=== PATIENT | male | born 1930 | race Caucasian/White ===

== ENCOUNTER 2017-09-23 11:18 | Emergency (ER) | payer BC, OTHER ==
[~2017-09-23] VITALS: Ht 165.1 cm; Wt 60.1 kg
[~2017-09-23 11:18] MED LIST: ASPEC81; FLNIN; MULT-506; PENLAC; VITA100C4; [UNRECOGNIZED DRUG - OTHER]
[2017-09-23 11:20] VITALS: TEMP 36.9; Ht 165.1 cm; Wt 60.1 kg
[2017-09-23] MEDS ORDERED: OXYMETAZOLINE HCL 0.05% NA SPR 15 ML BTL ONE (11:30)
[2017-09-23 12:08] LABS: BASO % 0.7 %; BASO ABS # 0.03 K/uL (0-0.2); COMPLETE YES; EOS % 5.2 %; HEMATOCRIT 33.4 % (42-52); IG% 0.2 %; LYMPH ABS # 0.98 K/uL (1.2-3.4); MEAN CELL VOLUME 98.2 fL (80-100); MEAN CORPUSCULAR HGB CONC 35.6 g/dl (32-36); MEAN PLATELET VOLUME 9.6 fL (7.4-10.4); NEUT % 62.9 %; PLATELET COUNT 129 K/uL (130-400); WHITE BLOOD COUNT 4.45 K/uL (4.8-10.8)
--- NOTE | 2017-09-23 12:19 | DIAGNOSTIC IMAGING REPORT ---
CT SCAN OF THE BRAIN WITHOUT IV CONTRAST CLINICAL HISTORY: Fall. COMPARISON STUDY: CT of the brain dated 08/28/2006. TECHNIQUE: Unenhanced axial CT scan of the brain is performed from the vertex to the skull base. CT DOSE: 1119.75 mGy.cm FINDINGS: Brain parenchyma: There are age-related involutional changes noting moderate patchy subcortical and periventricular microangiopathic change. There is no hemorrhage, mass effect, or evidence of acute territorial ischemia by CT criteria. Ochoa-white matter is preserved. No extra-axial fluid collection is seen. Ventricles, sulci, cisterns: Prominent secondary to involutional change. Intracranial vasculature: There is atherosclerotic calcification of the cavernous carotid arteries. Calvarium: The skeletal structures are osteopenic. Postoperative change is noted in the left occipital calvarium. No depressed calvarial fracture is seen. Nasal bone fractures are suspected. Sinuses and mastoids: Air-fluid level is seen in the left maxillary antrum. The remaining visualized paranasal sinuses are clear. The mastoid air cells are well pneumatized. Orbits: The bony orbits are grossly intact. IMPRESSION: 1. There is no hemorrhage, mass effect, or evidence of acute territorial ischemia by CT criteria. 2. No depressed calvarial fracture is seen. 3. Bilateral nasal bone fractures. 4. An air-fluid level is seen in the right maxillary antrum. Electronically signed by: Zeyad Suh M.D. 09/23/2017 12:18 PM Dictated Date/Time: 09/23/2017 12:11 PM
--- NOTE | 2017-09-23 12:24 | DIAGNOSTIC IMAGING REPORT ---
MAXILLOFACIAL CT CT DOSE: HISTORY: Facial pain. fall TECHNIQUE: Multiaxial CT images of the maxillofacial region were performed and reformatted in the coronal plane without the use of contrast. A dose lowering technique was utilized adhering to the principles of ALARA. COMPARISON: None. FINDINGS: Comminuted and mildly displaced nasal bone fractures. Mild leftward deviation of the nasal septum. The lamina papyracea, orbital floors, pterygoid plates, zygomatic arches, and mandible appear intact. No fractures within the skull base are visualized cervical spine. Small amount of hemorrhage within the left maxillary sinus. The orbits and visualized brain parenchyma are unremarkable. Nasal soft tissue swelling. IMPRESSION: Comminuted and mildly displaced nasal bone fractures. Small amount of hemorrhage within the left maxillary sinus. Electronically signed by: Lyle Chapman M.D. 09/23/2017 12:22 PM Dictated Date/Time: 09/23/2017 12:16 PM
[2017-09-23] MEDS ORDERED: CYCL0.052 OP (12:25)
[2017-09-23] MEDS ORDERED: IPRA0.03 NAE (12:25)
[2017-09-23] MEDS ORDERED: FLUT1SPR12 (12:25)
--- NOTE | 2017-09-23 12:28 | DIAGNOSTIC IMAGING REPORT ---
CERVICAL SPINE W/O CLINICAL HISTORY: 87 years-old Male with fall. Acute neck pain status post fall with nasal bleeding COMPARISON: CT head and maxillofacial study of same day. TECHNIQUE: Multiple axial CT images of the cervical spine were obtained without contrast. A dose lowering technique was utilized adhering to the principles of ALARA. FINDINGS: Moderate bone demineralization. There is anterolisthesis of 3 mm involving C5 on C6 and C7 on T1. This is likely secondary to long-standing advanced facet arthropathy. Severe facet arthrosis is noted at several levels throughout the cervical spine. Advanced intervertebral disc space narrowing at C6-C7. Multilevel posterior disc osteophyte complex formations. Mild biapical pleural-parenchymal scarring with subpleural calcifications. Bilateral nasal bone fractures are noted. Layering hemorrhage within the left maxillary sinus. IMPRESSION: 1. No acute cervical spine fracture or subluxation. 2. Moderate bone demineralization with multilevel advanced facet arthropathy and spondylitic changes. 3. Bilateral nasal bone fractures. Please see CT maxillofacial study of same day for further details. The above report was generated using voice recognition software. It may contain grammatical, syntax or spelling errors. Electronically signed by: Kevin Denise M.D. 09/23/2017 12:26 PM Dictated Date/Time: 09/23/2017 12:13 PM
[2017-09-23 12:29] LABS: ALT/SGPT 22 U/L (12-78); AST/SGOT 16 U/L (15-37); BLOOD UREA NITROGEN 31 mg/dl (7-18); BUN/CREATININE RATIO 28.1 (10-20); CALCIUM 8.9 mg/dl (8.5-10.1); CARBON DIOXIDE 26 mmol/L (21-32); CHLORIDE 100 mmol/L (98-107); CREATININE 1.12 mg/dl (0.60-1.40); GLUCOSE 96 mg/dl (70-99); POTASSIUM 4.4 mmol/L (3.5-5.1); SODIUM 135 mmol/L (136-145)
[2017-09-23 12:32] LABS: ALKALINE PHOSPHATASE 70 U/L (45-117); PROTHROMBIN TIME (PATIENT) 10.7 SECONDS (9.0-12.0)
[2017-09-23] MEDS ORDERED: CEPH500C2 PO (13:32)
--- NOTE | 2017-09-23 14:09 | EMERGENCY ROOM VISIT NOTE ---
History Report prepared by Yennyibnimo: Phillip Gutierrez Under the Supervision of: Dr. Nicko Mancera D.O. First contact with patient: 11:29 Chief Complaint: FALL Stated Complaint: FALL/NOSE BLEED History of Present Illness The patient is a 87 year old male who presents to the Emergency Room with complaints of constant facial pain s/p fall occurring two hours ago. He states that he tripped and landed on his face. He states that he has had a persistent nosebleed that he has not been able to stop. The patient denies abdominal pain, chest pain, or SOB. He did not lose consciousness during the fall. He is on full strength aspirin, but denies use of other blood thinners. The patient's tetanus is up to date. Source of History: patient Onset: Two hours ago Position: head (face) Timing: constant Associated Symptoms: No LOC, No chest pain, No SOB, No abdominal pain Review of Systems See HPI for pertinent positives & negatives. A total of 10 systems reviewed and were otherwise negative. Past Medical & Surgical Medical Problems: (1) Iritis Family History No pertinent family history stated. Social History Smoking Status: Never Smoker Occupation Status: retired Current/Historical Medications Scheduled Cephalexin Monohydrate (Keflex), 500 MG PO QID Cyclosporine (Ophth) (Restasis), 1 DROP OP BID Fluticasone Propionate (Nasal) (Flonase Allergy Relief Ch), 1 SPRAY NA DAILY Ipratropium [place] (Nasal) (Ipratropium [place]), 1 SPRAY FIDE DAILY Allergies Coded Allergies: Dust Mite Extract (Verified Allergy, Mild, 09/23/17) Molds and Smuts (Verified Allergy, Mild, 09/23/17) POLLEN (Verified Allergy, Mild, 09/23/17) Uncoded Allergies: ALLERGYEXTR (Allergy, Mild, 01/02/10) Physical Exam Vital Signs Date Time Temp Pulse Resp B/P (MAP) Pulse Ox O2 Delivery O2 Flow Rate FiO2 09/23/17 14:20 88 16 137/72 98 09/23/17 13:13 62 16 141/70 99 Room Air 09/23/17 11:20 36.9 73 18 131/81 96 Room Air Physical Exam GENERAL: Patient is awake, alert, and in no acute distress. Patient appears somewhat anxious. HEAD: Significant swelling over the bridge of the nose. Appears to be deviation of the septum with diminished nares size on the right. Significant amount of clotted blood in the left nare. Posterior oropharynx clear. EYES: The conjunctivae are clear. The pupils are round and reactive. EARS, NOSE, MOUTH AND THROAT: The nose is without any evidence of any deformity. Mucous membranes are moist tongue is midline NECK: The neck is nontender and supple. RESPIRATORY: Normal respiratory effort is noted there is no evidence of wheezing rhonchi or rales CARDIOVASCULAR: Regular rate and rhythm noted there no murmurs rubs or gallops normal S1 normal S2 GASTROINTESTINAL: The abdomen is soft. Bowel sounds are present in all quadrants. Abdomen is nontender BACK: No midline tenderness or or step-off noted range of motion in flexion extension as well as rotation no signs of muscle spasm noted MUSCULOSKELETAL/EXTREMITIES: There is no evidence of gross deformity full range of motion is noted in the hips and shoulders SKIN: There is no obvious evidence of any rash. There are no petechiae, pallor or cyanosis noted. NEUROLOGIC: Patient is awake alert and oriented x3 strength is symmetric patellar reflexes are 2+ bilaterally. Medical Decision & Procedures ER Provider Diagnostic Interpretation: CT results as stated below per my review and radiologist interpretation. MAXILLOFACIAL CT FINDINGS: Comminuted and mildly displaced nasal bone fractures. Mild leftward deviation of the nasal septum. The lamina papyracea, orbital floors, pterygoid plates, zygomatic arches, and mandible appear intact. No fractures within the skull base are visualized cervical spine. Small amount of hemorrhage within the left maxillary sinus. The orbits and visualized brain parenchyma are unremarkable. Nasal soft tissue swelling. IMPRESSION: Comminuted and mildly displaced nasal bone fractures. Small amount of hemorrhage within the left maxillary sinus. Electronically signed by: Lyle Champan M.D. 09/23/2017 12:[address] SCAN OF THE BRAIN WITHOUT IV CONTRAST FINDINGS: Brain parenchyma: There are age-related involutional changes noting moderate patchy subcortical and periventricular microangiopathic change. There is no hemorrhage, mass effect, or evidence of acute territorial ischemia by CT criteria. Ochoa-white matter is preserved. No extra-axial fluid collection is seen. Ventricles, sulci, cisterns: Prominent secondary to involutional change. Intracranial vasculature: There is atherosclerotic calcification of the cavernous carotid arteries. Calvarium: The skeletal structures are osteopenic. Postoperative change is noted in the left occipital calvarium. No depressed calvarial fracture is seen. Nasal bone fractures are suspected. Sinuses and mastoids: Air-fluid level is seen in the left maxillary antrum. The remaining visualized paranasal sinuses are clear. The mastoid air cells are well pneumatized. Orbits: The bony orbits are grossly intact. IMPRESSION: 1. There is no hemorrhage, mass effect, or evidence of acute territorial ischemia by CT criteria. 2. No depressed calvarial fracture is seen. 3. Bilateral nasal bone fractures. 4. An air-fluid level is seen in the right maxillary antrum. Electronically signed by: Zeyad Suh M.D. 09/23/2017 12:18 PM CERVICAL SPINE W/O FINDINGS: Moderate bone demineralization. There is anterolisthesis of 3 mm involving C5 on C6 and C7 on T1. This is likely secondary to long-standing advanced facet arthropathy. Severe facet arthrosis is noted at several levels throughout the cervical spine. Advanced intervertebral disc space narrowing at C6-C7. Multilevel posterior disc osteophyte complex formations. Mild biapical pleural-parenchymal scarring with subpleural calcifications. Bilateral nasal bone fractures are noted. Layering hemorrhage within the left maxillary sinus. IMPRESSION: 1. No acute cervical spine fracture or subluxation. 2. Moderate bone demineralization with multilevel advanced facet arthropathy and spondylitic changes. 3. Bilateral nasal bone fractures. Please see CT maxillofacial study of same day for further details. The above report was generated using voice recognition software. It may contain grammatical, syntax or spelling errors. Electronically signed by: Kevin Denise M.D. 09/23/2017 12:26 PM Laboratory Results 09/23/17 11:44 Red Blood Count 3.40, Mean Corpuscular Volume 98.2, Mean Corpuscular Hemoglobin 35.0, Mean Corpuscular Hemoglobin Concent 35.6, Mean Platelet Volume 9.6, Neutrophils (%) (Auto) 62.9, Lymphocytes (%) (Auto) 22.0, Monocytes (%) (Auto) 9.0, Eosinophils (%) (Auto) 5.2, Basophils (%) (Auto) 0.7, Neutrophils # (Auto) 2.80, Lymphocytes # (Auto) 0.98, Monocytes # (Auto) 0.40, Eosinophils # (Auto) 0.23, Basophils # (Auto) 0.03 09/23/17 11:44 Test 09/23/17 11:44 White Blood Count 4.45 K/uL (4.8-10.8) Red Blood Count 3.40 M/uL (4.7-6.1) Hemoglobin 11.9 g/dL (14.0-18.0) Hematocrit 33.4 % (42-52) Mean Corpuscular Volume 98.2 fL (80-100) Mean Corpuscular Hemoglobin 35.0 pg (25-34) Mean Corpuscular Hemoglobin Concent 35.6 g/dl (32-36) Platelet Count 129 K/uL (130-400) Mean Platelet Volume 9.6 fL (7.4-10.4) Neutrophils (%) (Auto) 62.9 % Lymphocytes (%) (Auto) 22.0 % Monocytes (%) (Auto) 9.0 % Eosinophils (%) (Auto) 5.2 % Basophils (%) (Auto) 0.7 % Neutrophils # (Auto) 2.80 K/uL (1.4-6.5) Lymphocytes # (Auto) 0.98 K/uL (1.2-3.4) Monocytes # (Auto) 0.40 K/uL (0.11-0.59) Eosinophils # (Auto) 0.23 K/uL (0-0.5) Basophils # (Auto) 0.03 K/uL (0-0.2) RDW Standard Deviation 45.1 fL (36.4-46.3) RDW Coefficient of Variation 12.7 % (11.5-14.5) Immature Granulocyte % (Auto) 0.2 % Immature Granulocyte # (Auto) 0.01 K/uL (0.00-0.02) Prothrombin Time 10.7 SECONDS (9.0-12.0) Prothromb Time International Ratio 1.0 (0.9-1.1) Activated Partial Thromboplast Time 25.9 SECONDS (21.0-31.0) Partial Thromboplastin Ratio 1.0 Anion Gap 9.0 mmol/L (3-11) Est Creatinine Clear Calc Drug Dose 41.0 ml/min Estimated GFR () 69.1 Estimated GFR (Non- 59.6 BUN/Creatinine Ratio 28.1 (10-20) Calcium Level 8.9 mg/dl (8.5-10.1) Total Bilirubin 0.3 mg/dl (0.2-1) Direct Bilirubin < 0.1 mg/dl (0-0.2) Aspartate Amino Transf (AST/SGOT) 16 U/L (15-37) Alanine Aminotransferase (ALT/SGPT) 22 U/L (12-78) Alkaline Phosphatase 70 U/L (45-117) Total Protein 6.4 gm/dl (6.4-8.2) Albumin 3.6 gm/dl (3.4-5.0) Laboratory results per my review. Medications Administered Medications (Trade) Dose Ordered Sig/Charisse Route Start Time Stop Time Status Last Admin Dose Admin Oxymetazoline HCl (Afrin 0.05% Nasal Malcolm) 75 sprays STK-MED ONCE .ROUTE 09/23/17 11:30 09/23/17 11:31 DC 09/23/17 11:40 75 SPRAYS ED Course 1130: The patient was evaluated in room C9. A complete history and physical examination were performed. Ordered Afrin 0.05% Nasal Malcolm 75 sprays INH. 1330: The oil field caser set up an appointment for the patient to see Dr. Kyle next week. 1400: Upon reevaluation, the patient is resting comfortably. I discussed the results and treatment plan with him. He verbalized agreement of the treatment plan. The patient was discharged home. Medical Decision Differential diagnosis: Etiologies such as fracture, dislocation, intra-abdominal, pneumothorax, intrathoracic , intracranial, neurologic, as well as other traumatic pathologies were entertained. Nursing notes reviewed. The patient is an 87-year-old male who presented to the emergency department after a fall. The patient fell forward striking his face. He sustained a significant facial injury with nasal bone fractures and epistaxis. The epistaxis was controlled with Afrin and pressure. I discussed the patient's laboratory and radiographic studies with him. He was found have bilateral nasal bone fractures with significant deformity. I discussed his case with the emergency Department oil field caser's. I asked them to set the patient up with an appointment with the [facility] in his throat physician at the patient's request. The patient was seen by the [facility] ear nose and throat physician in the past for different problem and has [employer] insurance. I was informed by the ear nose and throat physician for [facility] that the patient would have to see the on-call ear nose throat physician. The emergency Department oil field caser was able to get the patient an appointment next week with ear nose and throat physician. I feel this is acceptable. The patient was encouraged to continue taking the antibiotic that was prescribed and return to the emergency department immediately if symptoms change worsen or the need arises otherwise he was encouraged to follow-up with ear nose and throat physician as scheduled. Medication Reconcilliation Current Medication List: was personally reviewed by me Blood Pressure Screening Patient's blood pressure: Normal blood pressure Blood pressure disposition: Did not require urgent referral Consults Time Called: 1305 Consulting Physician: Dr. Cota -ENT Returned Call: 1310 I discussed the patient's case with Dr. Cota. He will not see the patient as this time. 1310: I spoke with Dr. Cota again. He states that due to an agreement with the other four ENT services, the alternate ENT service should be consulted. Impression Primary Impression: Fall Additional Impressions: Head injury Facial contusion Nasal bone fractures Epistaxis Scribe Attestation The scribe's documentation has been prepared under my direction and personally reviewed by me in its entirety. I confirm that the note above accurately reflects all work, treatment, procedures, and medical decision making performed by me. Departure Information Dispostion Home / Self-Care Prescriptions Cephalexin Monohydrate (KEFLEX) 500 Mg Cap 500 MG PO QID, #28 CAP Prov: Nicko Mancera, DO 09/23/17 Referrals Julia Lizama M.D. (PCP) Forms HOME CARE DOCUMENTATION FORM, IMPORTANT VISIT INFORMATION [facility] Inst[facility] Additional Instructions Follow-up with ear nose and throat physician as scheduled. Return to the emergency department immediately if symptoms change worsen or the need arises. Continue all medications as prescribed. Problem Qualifiers Primary Impression: Fall Encounter type: initial encounter Qualified Codes: W19.XXXA - Unspecified fall, initial encounter Additional Impressions: Head injury Encounter type: initial encounter Qualified Codes: S09.90XA - Unspecified injury of head, initial encounter Facial contusion Encounter type: initial encounter Qualified Codes: S00.83XA - Contusion of other part of head, initial encounter Nasal bone fractures Encounter type: initial encounter Fracture type: closed Qualified Codes: S02.2XXA - Fracture of nasal bones, initial encounter for closed fracture
[2017-09-23 14:20] VITALS: BP 137/72; PULSE 88; O2SAT 98
== END 2017-09-23 14:20 | disposition home or self-care (01) ==
LOC: C.EDB 11:20 → C.EDC 14:20
DX: S09.90XA Unspecified injury of head, initial encounter (principal); S00.83XA Contusion of other part of head, initial encounter; S02.2XXA Fracture of nasal bones, initial encounter for closed fracture; W01.0XXA Fall on same level from slipping, tripping and stumbling without subsequent striking against object, initial encounter; R04.0 Epistaxis; Z79.899 Other long term (current) drug therapy; Z91.09 Other allergy status, other than to drugs and biological substances

== ENCOUNTER 2019-01-10 14:47 | Inpatient (IN) ==
[2019-01-10] MEDS ORDERED: SODIUM CHLORIDE 0.9% 1000ML 500 ML IV ONE (15:00)
[2019-01-10 15:18] LABS: iSTAT Creatinine 1.1 mg/dl (0.6-1.3); iSTAT Hemoglobin 10.9 g/dl (14.0-18.0); iSTAT Ionized Calcium 1.17 mmol/l (1.12-1.32); iSTAT Potassium 3.6 mEq/L (3.3-5.0)
[2019-01-10 15:23] LABS: Hematocrit (blood only) 31.7 % (42-52); Hemoglobin 11.4 g/dL (14.0-18.0); Mean Corpuscular Volume 96.4 fL (80-100); Mean Platelet Volume 9.9 fL (7.4-10.4); Platelet Count 108 K/uL (130-400); RDW Standard Deviation 42.3 fL (36.4-46.3); Red Blood Count 3.29 M/uL (4.7-6.1); White Blood Count 10.32 K/uL (4.8-10.8)
[2019-01-10 15:24] LABS: INR 1.1 (0.9-1.1); Partial Thromboplastin Ratio 1.1; Partial Thromboplastin Time 27.3 Seconds (21.0-31.0); Prothrombin Time 11.2 Seconds (9.0-12.0)
--- NOTE | 2019-01-10 15:29 | XRay Report ---
XR pelvis 1-2V routine CLINICAL HISTORY: fall trauma. Pain. COMPARISON: None. DISCUSSION: The bones and joint spaces appear intact. There is no evidence of fracture, dislocation o r bony disease. There is no evidence for soft tissue swelling. Moderate degenerative changes of the h ips. IMPRESSION: No acute process. The above report was generated using voice recognition software. It may contain grammatical, syntax or spelling errors. Electronically signed by: Jun Kaplan M.D. 01/10/2019 3:28 PM
--- NOTE | 2019-01-10 15:30 | XRay Report ---
XR chest 1V portable CLINICAL HISTORY: fall trauma COMPARISON STUDY: 09/13/2018 FINDINGS: Small parenchymal infiltrate versus atelectasis right base. Lungs otherwise appear clear. N o evidence for pneumothorax. Chronic right apical pleural thickening unchanged from the prior study. IMPRESSION: Mild atelectasis right base. Mild emphysematous change. The above report was generated using voice recognition software. It may contain grammatical, syntax or spelling errors. Electronically signed by: Jun Kaplan M.D. 01/10/2019 3:29 PM
[2019-01-10 15:33] LABS: BUN Creatinine Ratio 22.4 (10-20); Calcium 8.6 mg/dl (8.5-10.1); Creatinine Clr Calc Pharmacy 37.5 ml/min; Est GFR (African American) 63.1; Est GFR (Non-African American) 54.4; Potassium 3.5 mmol/L (3.5-5.1)
[2019-01-10 15:46] LABS: Basophils # (auto) 0.01 K/uL (0-0.2); Basophils % (auto) 0.1 %; Immature Granulocytes # (auto) 0.02 K/uL (0.00-0.02); Immature Granulocytes % (auto) 0.2 %; Lymphocytes # (auto) 0.42 K/uL (1.2-3.4); Lymphocytes % (auto) 4.1 %; Monocytes # (auto) 0.41 K/uL (0.11-0.59); Neutrophils # (auto) 9.46 K/uL (1.4-6.5); Neutrophils % (auto) 91.6 %
[2019-01-10 15:47] LABS: Troponin I 0.1 ng/ml (0-0.045)
--- NOTE | 2019-01-10 16:24 | CT Scan Report ---
CT head/brain wo con CT DOSE: 729.78 mGycm HISTORY: Trauma fall on blood thinners TECHNIQUE: Multiaxial CT images of the head were performed without the use of intravenous contrast. A dose lowering technique was utilized adhering to the principles of ALARA. Comparison: 09/14/2018 Findings: Moderate mucosal thickening of all major sinuses. The calvarium and skull base are intact. The ventricles and sulci are within normal limits. There is no mass, hematoma, midline shift, or acut e infarct. Impression: No acute intracranial abnormality. Age-related atrophy and chronic small vessel change. The above report was generated using voice recognition software. It may contain grammatical, syntax or spelling errors. Electronically signed by: Jun Kaplan M.D. 01/10/2019 4:22 PM
--- NOTE | 2019-01-10 16:26 | CT Scan Report ---
CT OF THE CERVICAL SPINE WITHOUT CONTRAST CLINICAL HISTORY: fall COMPARISON STUDY: Cervical spine CT September 23, 2017. TECHNIQUE: Helical axial images of the cervical spine were obtained without IV contrast. Sagittal a nd coronal reconstructions were viewed. Automated exposure control was utilized for the study. A do se lowering technique was utilized adhering to the principles of ALARA. FINDINGS: No cervical spine fracture is identified. Craniocervical junction is intact. 3 mm of juan manuel listhesis of C5 on C6 is unchanged since exam September 23, 2017. There is moderate multilevel degenera tive disc disease and severe multilevel facet arthrosis. There is no prevertebral edema. Left mastoid air cells are partially opacified. IMPRESSION: 1. No acute cervical spine fracture or subluxation. 2. Partially opacified left mastoid air cells. Electronically signed by: Marcus Cho M.D. 01/10/2019 4:25 PM
--- NOTE | 2019-01-10 18:47 | History & Physical Report ---
Date of Service January 10, 2019 Assessment & Plan (1) Fall: Mostly due to recent Nasal congestion and left ear pressure Has been having unsteady gait CT head showed no acute intracranial abnormality Check CPK level Will do PT/OT Fall precaution (2) Elevated troponin: Might be related to rhabdo due to Fall Denies any chest pain EKG showed no ischemic changes Will trend troponin Continue Plavix, aspirin and statin (3) Nasal congestion: (4) Allergic rhinitis: Symptoms have been going on for 5 days Continue loratadine, flonase and nasal saline (5) Hypertension: BP stable (6) CVA (cerebral vascular accident): Continue palvix/aspirin and statin stable Left Shoulder Pain Mostly due to fall Will get xray of L shoulder (7) DVT prophylaxis: Lovenox subq CODE STATUS [facility] no [facility] History of Present Illness Chief Complaint: Fall Primary Care Provider: Eladio Bright MD 87 year old male with PMH CVA, Allergic rhinitis, asthma, thyroid nodule, chronic constipation who present to the ER after a fall today. Pt said that for the last 5 days, he has been having nasal congestion, and pressure in his left ear. He said that his gait has been unsteady due to his balance since having nasal congestion and left ear pressure. Pt said that this morning while going to the bathroom, he said that he lost his balance and fell. He said that he was unable to get up. He said that it happened so fast and could not recall how and what caused him to fall. He said that he was on the floor for about 1 hr. He said that he must have pushed his life alert because the EMS came to his place to help him. He said that he did not hit his head during the fall. He said that he did not lose consciousness. He said that his left shoulder his tender. He said that he lives alone and very active. Denies any chest pain, palpitation, dizziness and fever. Allergies Allergy/AdvReac Type Severity Reaction Status Date / Time mold Allergy Mild Verified 01/10/19 17:24 pollen extracts Allergy Mild Verified 01/10/19 17:24 ALLERGYEXTR Allergy Mild unk Uncoded 01/10/19 17:24 Dust Mite Extract Allergy Mild unk Uncoded 01/10/19 17:24 Home Medications Home Medications Medication Instructions Recorded Confirmed Type atorvastatin 40 mg PO QPM 09/13/18 01/10/19 History cholecalciferol (vitamin D3) 2,000 unit PO DAILY 09/13/18 01/10/19 History clopidogrel 75 mg PO DAILY 09/13/18 01/10/19 History cyclosporine 1 drp OPHTHALMIC (EYE) Q12H 09/13/18 01/10/19 History docusate sodium 100 mg PO DAILY 09/13/18 01/10/19 History fluticasone 2 spray INTRANASAL DAILY 09/13/18 01/10/19 History glucosamine sulfate [Glucosamine] 1 tab PO TID 09/13/18 01/10/19 History ipratropium bromide 2 spray INTRANASAL BID 09/13/18 01/10/19 History loratadine 10 mg PO DAILY 09/13/18 01/10/19 History multivitamin [Multiple Vitamins] 1 tab PO QAM 09/13/18 01/10/19 History polyethylene glycol 3350 [Miralax] 17 g PO DAILY PRN 09/13/18 01/10/19 History acetaminophen [Tylenol Extra 1 tab PO DAILY PRN 01/10/19 01/10/19 History Strength] finasteride 1 tab PO DAILY 01/10/19 01/10/19 History mupirocin calcium 1 applic TOPICAL BID 01/10/19 01/10/19 History tamsulosin 1 cap PO DAILY 01/10/19 01/10/19 History Past Med/Surg History Medical History Depression Thyroid nodule (Chronic) Chronic constipation (Chronic) Allergic rhinitis (Chronic) Asthma (Chronic) CVA (cerebral vascular accident) Short-term memory loss (Chronic) Iritis (Resolved) Surgical History History of inguinal hernia repair (Chronic) Social History marital status: / marital status details: is in Alzheimer care unit Current Living Situation: Alone current occupational status: retired Other Information That Helps Us Care for You: No Feels Safe at Home: Yes Safety Concerns: Feels Safe At This Time Smoking Status: Never smoker Second Hand Exposure: No Hx Alcohol Use: No Hx Substance Use: No Communication Ability: Effective 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 swelling on turbinates Neck- supple, no JVD Lungs- cNo wheezing Heart- regular rhythm; no murmur Abdomen- normal bowel sounds, soft, nontender Extremities- no calf tenderness, Left shoulder pain Neuro- alert, oriented x 3; PERRL, EOMI; no facial palsy; no dysarthria Skin- warm & dry Results & Data Diagnostic Findings CT OF THE CERVICAL SPINE WITHOUT CONTRAST CLINICAL HISTORY: fall COMPARISON STUDY: Cervical spine CT September 23, 2017. TECHNIQUE: Helical axial images of the cervical spine were obtained without IV contrast. Sagittal and coronal reconstructions were viewed. Automated exposure control was utilized for the study. A dose lowering technique was utilized adhering to the principles of ALARA. FINDINGS: No cervical spine fracture is identified. Craniocervical junction is intact. 3 mm of anterolisthesis of C5 on C6 is unchanged since exam September 23, 2017. There is moderate multilevel degenerative disc disease and severe multilevel facet arthrosis. There is no prevertebral edema. Left mastoid air cells are partially opacified. IMPRESSION: 1. No acute cervical spine fracture or subluxation. 2. Partially opacified left mastoid air cells. Electronically signed by: Marcus Cho M.D. 01/10/2019 4:25 PM Dictated: 01/10/19 1620 Transcribed: 01/10/19 1620 XR pelvis 1-2V routine CLINICAL HISTORY: fall trauma. Pain. COMPARISON: None. DISCUSSION: The bones and joint spaces appear intact. There is no evidence of fracture, dislocation or bony disease. There is no evidence for soft tissue swelling. Moderate degenerative changes of the hips. IMPRESSION: No acute process. The above report was generated using voice recognition software. It may contain grammatical, syntax or spelling errors. Electronically signed by: Jun Kaplan M.D. 01/10/2019 3:28 PM Dictated: 01/10/19 1526 Transcribed: 01/10/[address] head/brain wo con CT DOSE: 729.78 mGycm HISTORY: Trauma fall on blood thinners TECHNIQUE: Multiaxial CT images of the head were performed without the use of intravenous contrast. A dose lowering technique was utilized adhering to the principles of ALARA. Comparison: 09/14/2018 Findings: Moderate mucosal thickening of all major sinuses. The calvarium and skull base are intact. The ventricles and sulci are within normal limits. There is no mass, hematoma, midline shift, or acute infarct. Impression: No acute intracranial abnormality. Age-related atrophy and chronic small vessel change. The above report was generated using voice recognition software. It may contain grammatical, syntax or spelling errors. Electronically signed by: Jun Kaplan M.D. 01/10/2019 4:22 PM Dictated: 01/10/19 1620 Transcribed: 01/10/19 162 XR chest 1V portable CLINICAL HISTORY: fall trauma COMPARISON STUDY: 09/13/2018 FINDINGS: Small parenchymal infiltrate versus atelectasis right base. Lungs otherwise appear clear. No evidence for pneumothorax. Chronic right apical pleural thickening unchanged from the prior study. IMPRESSION: Mild atelectasis right base. Mild emphysematous change. The above report was generated using voice recognition software. It may contain grammatical, syntax or spelling errors. Electronically signed by: Jun Kaplan M.D. 01/10/2019 3:29 PM Dictated: 01/10/19 1528 Transcribed: 01/10/19 1528 _ (1) Hypertension Hypertension type: essential hypertension Qualified Code(s): I10 - Essential (primary) hypertension (2) CVA (cerebral vascular accident) CVA mechanism: unspecified Laterality of affected vessel: Precerebral and cerebral artery: Qualified Code(s): I63.9 - Cerebral infarction, unspecified
[2019-01-10] MEDS ORDERED: IPRATROPIUM BROMIDE HFA INHALER INH PRN (19:25)
--- NOTE | 2019-01-10 19:46 | Emergency Department Note ---
Entered by Corie Soto acting as a scribe for History of Present Illness General Chief complaint: Fall Stated complaint: fall/ head bump Time Seen by Provider: 01/10/19 14:56 Source: patient Limitations: no limitations History of Present Illness Provider complaint: fall Onset (ago): day(s) 1 Associated symptoms: no chest pain, no headaches and no shortness of breath The patient is a 88 year old male who presents to the Emergency Room with complaints of a fall the occurred earlier today. The patient states that he was in his bathroom and that he lost his balance and fell. He states he did not trip and does not remember falling. He states he did hit his head. He rates a mild headache at this time. The patient denies any general pain including chest pains, difficulties breathing, or headache. The patient states that he takes Plavix. The patient states that he has a history of an enlarged prostate. He states he is currently on antibiotics for sinus infection. Home Medications Home Medications Medication Instructions Recorded Confirmed Type atorvastatin 40 mg PO QPM 09/13/18 01/10/19 History cholecalciferol (vitamin D3) 2,000 unit PO DAILY 09/13/18 01/10/19 History clopidogrel 75 mg PO DAILY 09/13/18 01/10/19 History cyclosporine 1 drp OPHTHALMIC (EYE) Q12H 09/13/18 01/10/19 History docusate sodium 100 mg PO DAILY 09/13/18 01/10/19 History fluticasone 2 spray INTRANASAL DAILY 09/13/18 01/10/19 History glucosamine sulfate [Glucosamine] 1 tab PO TID 09/13/18 01/10/19 History ipratropium bromide 2 spray INTRANASAL BID 09/13/18 01/10/19 History loratadine 10 mg PO DAILY 09/13/18 01/10/19 History multivitamin [Multiple Vitamins] 1 tab PO QAM 09/13/18 01/10/19 History polyethylene glycol 3350 [Miralax] 17 g PO DAILY PRN 09/13/18 01/10/19 History acetaminophen [Tylenol Extra 1 tab PO DAILY PRN 01/10/19 01/10/19 History Strength] finasteride 1 tab PO DAILY 01/10/19 01/10/19 History mupirocin calcium 1 applic TOPICAL BID 02/13/19 02/13/19 History tamsulosin 1 cap PO DAILY 01/10/19 01/10/19 History Allergies Allergy/AdvReac Type Severity Reaction Status Date / Time mold Allergy Mild Verified 01/10/19 17:24 pollen extracts Allergy Mild Verified 01/10/19 17:24 ALLERGYEXTR Allergy Mild unk Uncoded 01/10/19 17:24 Dust Mite Extract Allergy Mild unk Uncoded 01/10/19 17:24 Past Med/Surg History Medical History Depression Thyroid nodule (Chronic) Chronic constipation (Chronic) Allergic rhinitis (Chronic) Asthma (Chronic) CVA (cerebral vascular accident) Short-term memory loss (Chronic) Iritis (Resolved) Surgical History History of inguinal hernia repair (Chronic) Social History marital status: / marital status details: is in Alzheimer care unit Current Living Situation: Alone current occupational status: retired Feels Safe at Home: Yes Smoking Status: Former smoker Second Hand Exposure: No Hx Alcohol Use: No Hx Substance Use: No Preferred Language: Maldivian Review of Systems See HPI for pertinent positives & negatives. and A total of 10 systems reviewed and were otherwise negative Physical Exam Vital Signs Vital Signs - 24 hr 01/10/19 15:01 01/10/19 15:03 01/10/19 16:30 Temperature 37.6 C H Temperature Source Oral Sepsis Recent Fever Within 48 Hours Yes Sepsis New/Unexplained Change in Mental Status No Sepsis Action Taken by Nursing No Action Required Pulse Rate 90 82 Pulse Rate [Finger] Respiratory Rate 20 15 Respiratory Effort / Characteristics Non-Labored Spontaneous Respiratory Depth Normal Respiratory Pattern Regular Blood Pressure 144/65 H 136/79 Blood Pressure [Left Arm] Blood Pressure Mean 91 98 Blood Pressure Mean [Left Arm] Pulse Oximetry 95 95 95 Oxygen Delivery Method Room Air Room Air 01/10/19 18:52 Temperature Temperature Source Sepsis Recent Fever Within 48 Hours Sepsis New/Unexplained Change in Mental Status Sepsis Action Taken by Nursing Pulse Rate Pulse Rate [Finger] 80 Respiratory Rate 16 Respiratory Effort / Characteristics Respiratory Depth Respiratory Pattern Blood Pressure Blood Pressure [Left Arm] 148/87 H Blood Pressure Mean Blood Pressure Mean [Left Arm] 107 Pulse Oximetry 94 Oxygen Delivery Method Room Air GENERAL: He is oriented to person, place, and time. He appears well-developed and well-nourished. He does not appear distressed. HENT: Exam performed. - Head: Normocephalic and atraumatic. - Right Ear: External ear normal. No mastoid tenderness. - Left Ear: External ear normal. No mastoid tenderness. - Mouth/Throat: The oropharynx is clear and dry. No trismus in the jaw. No dental abscesses or uvula swelling. No oropharyngeal exudate or tonsillar abscesses. EYES: Conjunctivae and EOM are normal. Pupils are equal, round, and reactive to light. Right eye exhibits no discharge. Left eye exhibits no discharge. No scleral icterus. NECK: Normal range of motion. Neck supple. No JVD present. No spinous process tenderness present. No carotid bruit present. No rigidity. No tracheal deviation and normal range of motion present. No Brudzinski's sign and no Kernig 's sign noted. CV: Normal rate, regular rhythm, normal heart sounds and intact distal pulses. There is no peripheral edema. Palpable radial pulses bue. PULM/CHEST: Effort normal and breath sounds normal. No respiratory distress. No stridor. He has no wheezes. He has no rales. - Chest Wall: He exhibits no tenderness. ABD: The abdomen is soft. Bowel sounds are normal. He has no distension. No mass is present. There is no tenderness. There is no rebound, no guarding, no Peck's sign and no tenderness at McBurney's point. Rovsig negative. MUSC/SKEL: Normal range of motion. There is no peripheral edema, tenderness or deformity. LYMPH: No cervical adenopathy. NEURO: He is alert and oriented to person, place, and time. He has normal strength. No cranial nerve deficit or sensory deficit. Coordination and gait normal. GCS eye subscore is 4. GCS verbal subscore is 5. GCS motor subscore is 6. Cerebellar tests wnl. SKIN: Skin is warm and dry. He is not diaphoretic. PSYCH: He has a normal mood and affect. Behavior is normal. Judgment and thought content normal. Course 1457: Past medical records reviewed. The patient was evaluated in room C4, and a complete history and physical examination were performed. 1645: I checked on the patient. The patient's vital signs are stable and the patient continues to have no chest pain or shortness of breath. The patient's ECG continues to be within normal limits and his imaging was within normal limits. The patient's Troponin is elevated at 0.1. I discussed the patient's case with Nayeli Sheehan Hospitalist, Dr. Brooke attending physician, who states that she will make the patient a consult with cardiology. She states that given the patient continues to have no chest pain to not start Heparin. I agree with this decision. The hospitalist team will conduct serial troponins and they will follow-up on them. I agree with this decision and admitting the patient. Consultations Consultation #1: Dr. Mendy Cordero attending physician Time: 16:45 Administered Medications Discontinued Medications Sodium Chloride (Nss 1000ml) 500 mls @ 999 mls/hr IV .Q31M ONE Stop: 01/10/19 15:30 Last Infusion: 01/10/19 17:17 Dose: 0 mls/hr Admin: 01/10/19 16:26 Dose: 999 mls/hr Medical Decision Making Medical Records Attestation: I reviewed the patient's medical records. Home Medications Current Medication List: was personally reviewed by me Laboratory Data Attestation: I reviewed the patient's lab results. Result diagrams: 01/10/19 14:55 01/10/19 14:55 Lab Results 01/10/19 01/10/19 01/10/19 Range/Units 14:55 14:55 14:55 WBC 10.32 (4.8-10.8) K/uL RBC 3.29 L (4.7-6.1) M/uL Hgb 11.4 L (14.0-18.0) g/dL POC Hgb (14.0-18.0) g/dl Hct 31.7 L (42-52) % POC Hct (42-52) % MCV 96.4 (80-100) fL MCH 34.7 H (25-34) pg MCHC 36.0 (32-36) g/dL RDW Std Deviation 42.3 (36.4-46.3) fL RDW Coeff of Garo 12.0 (11.5-14.5) % Plt Count 108 L (130-400) K/uL MPV 9.9 (7.4-10.4) fL Immature Gran % (Auto) 0.2 % Neut % (Auto) 91.6 % Lymph % (Auto) 4.1 % K[place]y % (Auto) 4.0 % Eos % (Auto) 0.0 % Baso % (Auto) 0.1 % Immature Gran # (Auto) 0.02 (0.00-0.02) K/uL Neut # (Auto) 9.46 H (1.4-6.5) K/uL Lymph # (Auto) 0.42 L (1.2-3.4) K/uL [place] # (Auto) 0.41 (0.11-0.59) K/uL Eos # (Auto) 0.00 (0-0.5) K/uL Baso # (Auto) 0.01 (0-0.2) K/uL PT 11.2 (9.0-12.0) Seconds INR 1.1 (0.9-1.1) APTT 27.3 (21.0-31.0) Seconds PTT Ratio 1.1 POC Sodium (135-144) mEq/L Sodium 129 L (136-145) mmol/L POC Potassium (3.3-5.0) mEq/L Potassium 3.5 (3.5-5.1) mmol/L POC Chloride (101-112) mEq/L Chloride 98 (98-107) mmol/L Carbon Dioxide 26 (21-32) mmol/L POC Total CO2 (24-31) mEq/l Anion Gap 5.0 (3-11) POC Anion Gap (16-25) mmol/L POC BUN (7-18) mg/dl BUN 27 H (7-18) mg/dl Creatinine 1.20 (0.6-1.4) mg/dl POC Creatinine (0.6-1.3) mg/dl Est Cr Clr Drug Dosing 37.5 ml/min Est GFR ( Amer) 63.1 Est GFR (Non-Af Amer) 54.4 BUN/Creatinine Ratio 22.4 H (10-20) Glucose 117 H (70-99) mg/dl POC Glucose (other) (70-99) mg/dl Calcium 8.6 (8.5-10.1) mg/dl POC Ioniz Calcium Raven (1.12-1.32) mmol/l Troponin I 0.100 H* (0-0.045) ng/ml 01/10/19 Range/Units 15:05 WBC (4.8-10.8) K/uL RBC (4.7-6.1) M/uL Hgb (14.0-18.0) g/dL POC Hgb 10.9 L (14.0-18.0) g/dl Hct (42-52) % POC Hct 32 L (42-52) % MCV (80-100) fL MCH (25-34) pg MCHC (32-36) g/dL RDW Std Deviation (36.4-46.3) fL RDW Coeff of Garo (11.5-14.5) % Plt Count (130-400) K/uL MPV (7.4-10.4) fL Immature Gran % (Auto) % Neut % (Auto) % Lymph % (Auto) % [place] % (Auto) % Eos % (Auto) % Baso % (Auto) % Immature Gran # (Auto) (0.00-0.02) K/uL Neut # (Auto) (1.4-6.5) K/uL Lymph # (Auto) (1.2-3.4) K/uL [place]y # (Auto) (0.11-0.59) K/uL Eos # (Auto) (0-0.5) K/uL Baso # (Auto) (0-0.2) K/uL PT (9.0-12.0) Seconds INR (0.9-1.1) APTT (21.0-31.0) Seconds PTT Ratio POC Sodium 132 L (135-144) mEq/L Sodium (136-145) mmol/L POC Potassium 3.6 (3.3-5.0) mEq/L Potassium (3.5-5.1) mmol/L POC Chloride 94 L (101-112) mEq/L Chloride (98-107) mmol/L Carbon Dioxide (21-32) mmol/L POC Total CO2 25 (24-31) mEq/l Anion Gap (3-11) POC Anion Gap 17.0 (16-25) mmol/L POC BUN 24 H (7-18) mg/dl BUN (7-18) mg/dl Creatinine (0.6-1.4) mg/dl POC Creatinine 1.1 (0.6-1.3) mg/dl Est Cr Clr Drug Dosing ml/min Est GFR ( Amer) Est GFR (Non-Af Amer) BUN/Creatinine Ratio (10-20) Glucose (70-99) mg/dl POC Glucose (other) 118 H (70-99) mg/dl Calcium (8.5-10.1) mg/dl POC Ioniz Calcium Raven 1.17 (1.12-1.32) mmol/l Troponin I (0-0.045) ng/ml Imaging Data Radiologist's Impression: Radiology results as stated below per my review and the radiologist's interpretation: CT head/brain wo con CT DOSE: 729.78 mGycm HISTORY: Trauma fall on blood thinners TECHNIQUE: Multiaxial CT images of the head were performed without the use of intravenous contrast. A dose lowering technique was utilized adhering to the principles of ALARA. Comparison: 09/14/2018 Findings: Moderate mucosal thickening of all major sinuses. The calvarium and skull base are intact. The ventricles and sulci are within normal limits. There is no mass, hematoma, midline shift, or acute infarct. Impression: No acute intracranial abnormality. Age-related atrophy and chronic small vessel change. The above report was generated using voice recognition software. It may contain grammatical, syntax or spelling errors. Electronically signed by: Jun Kaplan M.D. 01/10/2019 4:[address] OF THE CERVICAL SPINE WITHOUT CONTRAST CLINICAL HISTORY: fall COMPARISON STUDY: Cervical spine CT September 23, 2017. TECHNIQUE: Helical axial images of the cervical spine were obtained without IV contrast. Sagittal and coronal reconstructions were viewed. Automated exposure control was utilized for the study. A dose lowering technique was utilized adhering to the principles of ALARA. FINDINGS: No cervical spine fracture is identified. Craniocervical junction is intact. 3 mm of anterolisthesis of C5 on C6 is unchanged since exam September 23, 2017. There is moderate multilevel degenerative disc disease and severe multilevel facet arthrosis. There is no prevertebral edema. Left mastoid air cells are partially opacified. IMPRESSION: 1. No acute cervical spine fracture or subluxation. 2. Partially opacified left mastoid air cells. Electronically signed by: Marcus Cho M.D. 01/10/2019 4:25 PM XR chest 1V portable CLINICAL HISTORY: fall trauma COMPARISON STUDY: 09/13/2018 FINDINGS: Small parenchymal infiltrate versus atelectasis right base. Lungs otherwise appear clear. No evidence for pneumothorax. Chronic right apical pleural thickening unchanged from the prior study. IMPRESSION: Mild atelectasis right base. Mild emphysematous change. The above report was generated using voice recognition software. It may contain grammatical, syntax or spelling errors. Electronically signed by: Jun Kaplan M.D. 01/10/2019 3:29 PM XR pelvis 1-2V routine CLINICAL HISTORY: fall trauma. Pain. COMPARISON: None. DISCUSSION: The bones and joint spaces appear intact. There is no evidence of fracture, dislocation or bony disease. There is no evidence for soft tissue swelling. Moderate degenerative changes of the hips. IMPRESSION: No acute process. The above report was generated using voice recognition software. It may contain grammatical, syntax or spelling errors. Electronically signed by: Jun Kaplan M.D. 01/10/2019 3:28 PM ECG Data Attestation: I personally reviewed and interpreted this ECG as follows: Indication: weakness Rate (beats per minute): 87 Rhythm: sinus rhythm Findings: + other (QRS and [place] intervals within normal limits); no ST depression and no ST elevation Blood Pressure Blood Pressure Findings: Normal blood pressure MDM Narrative The patient's vital signs are stable and the patient continues to have no chest pain or shortness of breath. The patient's ECG continues to be within normal limits and his imaging was within normal limits. The patient's Troponin is elevated at 0.1. I discussed the patient's case with Nayeli Perez [facility] Hospitalist, Dr. Brooke attending physician, who states that she will make the patient a consult with cardiology. She states that given the patient continues to have no chest pain to not start Heparin. I agree with this decision. The hospitalist team will conduct serial troponins and they will follow-up on them. I agree with this decision and admitting the patient. Impression & Plan Syncope, Elevated troponin Discharge Plan Visit Data *Final* Discharge Date/Time: 01/10/19 19:24 Chief Complaint: Fall Stated Complaint: fall/ head bump ED Provider: Kaushal Vides Discharge Problem: Syncope, Elevated troponin Patient Disposition: Admitted As Inpatient The scribe's documentation has been prepared under my direction and personally reviewed by me in its entirety. I confirm that the note above accurately reflects all work, treatment, procedures, and medical decision making performed by me.
[2019-01-10] MEDS ORDERED: SODIUM CHLORIDE 0.9% 1000ML 1,000 ML IV SCH (20:00)
[2019-01-10] MEDS: MUPIROCIN 2% OINT 22 GM TUBE EXT SCH (20:48)
[2019-01-10] MEDS: ATORVASTATIN 40 MG TAB PO SCH (20:49)
[2019-01-10] MEDS ORDERED: MUPIROCIN CALCIUM CREAM 2% 15 GM TUBE EXT SCH (21:00)
--- NOTE | 2019-01-10 21:31 | XRay Report ---
XR shoulder RT min 2V routine CLINICAL HISTORY: Right shoulder pain following fall. COMPARISON: None FINDINGS: Alignment of the right shoulder is anatomic. There is no acute fracture. 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 IMPRESSION: 1. No acute fracture or dislocation within the right shoulder. 2. 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 Electronically signed by: Marcus Cho M.D. 01/10/2019 9:29 PM
[2019-01-10 22:05] LABS: Troponin I 0.276 ng/ml (0-0.045)
[2019-01-11] MEDS ORDERED: ACETAMINOPHEN 325 MG TAB ONE (00:17)
[2019-01-11] MEDS: ACETAMINOPHEN 325 MG TAB PO PRN ×3 (00:18→19:43)
[2019-01-11 03:55] LABS: Hematocrit (blood only) 30.7 % (42-52); Hemoglobin 10.9 g/dL (14.0-18.0); Mean Corpuscular Hgb Conc 35.5 g/dL (32-36); Mean Corpuscular Volume 96.8 fL (80-100); Mean Platelet Volume 10.1 fL (7.4-10.4); Platelet Count 105 K/uL (130-400); RDW Coefficient of Variation 12.1 % (11.5-14.5); Red Blood Count 3.17 M/uL (4.7-6.1); White Blood Count 10.43 K/uL (4.8-10.8)
[2019-01-11 04:14] LABS: BUN Creatinine Ratio 21.1 (10-20); Calcium 8.3 mg/dl (8.5-10.1); Creatinine Clr Calc Pharmacy 39.5 ml/min; Est GFR (African American) 67.1; Est GFR (Non-African American) 57.9; Potassium 3.8 mmol/L (3.5-5.1)
[2019-01-11 04:32] LABS: Troponin I 0.245 ng/ml (0-0.045)
[2019-01-11] MEDS: LORATADINE 10 MG TAB PO SCH (08:04)
[2019-01-11] MEDS: MUPIROCIN 2% OINT 22 GM TUBE EXT SCH ×2 (08:04→19:56)
[2019-01-11] MEDS: FLUTICASONE PROPIONATE NA SPR 16 GM BTL SCH (08:04)
[2019-01-11] MEDS: TAMSULOSIN HCL 0.4 MG CAP PO SCH (08:05)
[2019-01-11] MEDS: CLOPIDOGREL BISULFATE 75 MG TAB PO SCH (08:06)
[2019-01-11] MEDS: CHOLECALCIFEROL 1,000 UNITS TAB PO SCH (08:06)
[2019-01-11] MEDS: FINASTERIDE 5 MG TAB PO SCH (08:06)
[2019-01-11] MEDS ORDERED: ENOXAPARIN INJ 30 MG/0.3 ML SYR SQ SCH (09:00)
--- NOTE | 2019-01-11 09:31 | Hospitalist Progress Note ---
Date of Service January 11, 2019 Assessment & Plan (1) Pneumonia: Panculture, Tamiflu, Rocephin and ZMax, Nebs (2) Acute febrile illness: Panculture (3) Hyponatremia: NSS c 20 KCL (4) Fall: Mostly due to recent Nasal congestion and left ear pressure Has been having unsteady gait CT head showed no acute intracranial abnormality CXR c Possible PNA Fever-Panculture, Flu swab Rocephin and Zmax, Tamiflu, Deescalate when serologies back Check CPK level PT/OT Fall precautions Droplet (5) Elevated troponin: Might be related to rhabdo due to Fall Denies any chest pain EKG showed no ischemic changes Will trend troponin Continue Plavix, aspirin and statin (6) Nasal congestion: Treat Bacterial v Viral Febrile illness (7) Allergic rhinitis: Symptoms have been going on for 5 days Continue loratadine, flonase and nasal saline (8) Hypertension: BP stable (9) DVT prophylaxis: Heparin subq CODE STATUS FUll no mech (10) CVA (cerebral vascular accident): Continue palvix/aspirin and statin stable Left Shoulder Pain Mostly due to fall xray of L shoulder-No Fracture Subjective 87 year old male with PMH CVA, Allergic rhinitis, asthma, thyroid nodule, chronic constipation who present to the ER after a fall today. Pt said that for the last 5 days, he has been having nasal congestion, and pressure in his left ear. He said that his gait has been unsteady due to his balance since having nasal congestion and left ear pressure. Pt said that this morning while going to the bathroom, he said that he lost his balance and fell. He said that he was unable to get up. He said that it happened so fast and could not recall how and what caused him to fall. He said that he was on the floor for about 1 hr. He said that he must have pushed his life alert because the EMS came to his place to help him. He said that he did not hit his head during the fall. He said that he did not lose consciousness. He said that his left shoulder his tender. He said that he lives alone and very active. Denies any chest pain, palpitation, dizziness and fever. On HD 2 the patient was running fevers, he was made inpatient and pancultured, Rapid flu ordered too. ROS-No Headache, No Visual Changes, No Nausea, No Vomiting, No Fever, No Chills , No Neck Pain or Stiffness, No Chest Pain, No Palpitations, No SOB, No ARCINIEGA, No Cough, No Sputum, No Wheezing, No Abdominal Pain, No Diarrhea, No Hematemesis, No Hemoptysis, No Unexpected Weight Loss, No Flank pain, No Melena, No Hematochezia, No Frequency, No Urgency, No Burning, No Hematuria, No Rashes, No Diaphoresis. Appetite is Normal Physical Exam Gen-AAO x 3, NAD, febrile Head-Sore above R eye from fall, EOMI, PERRLA, Anicteric Sclera, No Posterior Pharyngeal Erythema Neck-Supple, No JVD, No Thyromegaly, No Masses, No LAD, No Bruits Lungs-Clear to Auscultation Bilaterally, No Rales, No Rhonchi, No Wheezing, No Crepitus Chest-No S4, +S1, +S2, No S3, No Murmurs, No Rubs, No Gallops, No Ectopy Abdomen-Soft, Bowel Sounds Present, Non Tender, Non Distended, No Hepatomegaly, No Splenomegaly, No Palpable Masses, No Rebound, No Rigidity, No Guarding Musculoskeletal-Full Range of Motion Bilaterally, No CVAT Extremities-No Cyanosis, No Clubbing, No Edema Nuero-Cranial Nerves II-XII grossly intact, Motor WNL, DTRs WNL, Strength WNL, Non Focal Psych-Normal Mood Physical Exam 2 Vital Signs (Past 24 Hours): Last Vital Signs Temp 39.2 C H 01/11/19 07:17 Pulse 81 01/11/19 08:00 Resp 18 01/11/19 07:17 BP 138/75 01/11/19 07:17 Pulse Ox 90 01/11/19 07:17 Results & Data Laboratory Results Allergies mold Allergy (Mild, Verified 01/10/19 17:24) pollen extracts Allergy (Mild, Verified 01/10/19 17:24) ALLERGYEXTR Allergy (Mild, Uncoded 01/10/19 17:24) unk Dust Mite Extract Allergy (Mild, Uncoded 01/10/19 17:24) unk Height/Weight/Isolation Height 5 ft 5 in Weight 57 kg Chemistry 01/10/19 01/11/19 14:55 03:36 Sodium 129 L 130 L Potassium 3.5 3.8 Chloride 98 101 Carbon Dioxide 26 26 Anion Gap 5.0 3.0 BUN 27 H 24 H Creatinine 1.20 1.14 Glucose 117 H 101 H _ (1) Hypertension Hypertension type: essential hypertension Qualified Code(s): I10 - Essential (primary) hypertension (2) CVA (cerebral vascular accident) CVA mechanism: unspecified Laterality of affected vessel: Precerebral and cerebral artery: Qualified Code(s): I63.9 - Cerebral infarction, unspecified
[2019-01-11] MEDS ORDERED: OSELTAMIVIR PHOSPHATE SUSP 30 MG/5 ML UDP PO SCH (10:30)
[2019-01-11] MEDS: NSS + 20MEQ KCL 20 MEQ/1,000 ML BAG IV SCH ×2 (10:41→18:52)
[2019-01-11] MEDS: cefTRIAXone SODIUM 1,000 MG in SODIUM CHLOR 0.9% AD-VAN 50 ML IV SCH (10:41)
[2019-01-11 10:47] LABS: Influenza A virus by PCR Neg for Influ A (Neg); Influenza B virus by PCR Neg for Influ B (Neg)
[2019-01-11] MEDS: AZITHROMYCIN 500 MG in DEXTROSE 5% 250 ML IV SCH (11:20)
[2019-01-11] MEDS: HEPARIN SOD 5,000 UNIT/0.5 ML VIAL SQ SCH ×2 (13:28→19:44)
[2019-01-11 15:59] LABS: Appearance Urine Clear (Clear); Bacteria Urine Automated Negative (Negative); Bilirubin Urine Negative (Negative); Blood Urine 3+ (Negative); Color Urine Dark Yellow; Epithelial Cell Urine Auto 20-30 /lpf (0-5); Glucose Urine UA Negative (Negative); Ketones Urine Negative (Negative); Leukocyte Esterase Urine Negative (Negative); Nitrite Urine Negative (Negative); Protein Urine 2+ (Negative); Specific Gravity Urine 1.024 (1.000-1.030); Urobilinogen Urine Negative (Negative); pH Urine 6.5 (4.5-7.5)
[2019-01-11] MEDS: ATORVASTATIN 40 MG TAB PO SCH (19:44)
[2019-01-12] MEDS: NSS + 20MEQ KCL 20 MEQ/1,000 ML BAG IV SCH ×2 (04:46→15:02)
[2019-01-12] MEDS: HEPARIN SOD 5,000 UNIT/0.5 ML VIAL SQ SCH ×3 (05:34→20:16)
[2019-01-12 06:33] LABS: BUN Creatinine Ratio 22.2 (10-20); Calcium 7.8 mg/dl (8.5-10.1); Creatinine Clr Calc Pharmacy 37.1 ml/min; Est GFR (African American) 63.7; Potassium 3.8 mmol/L (3.5-5.1)
[2019-01-12] MEDS: FINASTERIDE 5 MG TAB PO SCH (07:46)
[2019-01-12] MEDS: TAMSULOSIN HCL 0.4 MG CAP PO SCH (07:46)
[2019-01-12] MEDS: MUPIROCIN 2% OINT 22 GM TUBE EXT SCH ×2 (07:47→20:13)
[2019-01-12] MEDS: LORATADINE 10 MG TAB PO SCH (07:47)
[2019-01-12] MEDS: FLUTICASONE PROPIONATE NA SPR 16 GM BTL SCH (07:48)
[2019-01-12] MEDS: CLOPIDOGREL BISULFATE 75 MG TAB PO SCH (07:49)
[2019-01-12] MEDS: CHOLECALCIFEROL 1,000 UNITS TAB PO SCH (07:50)
[2019-01-12] MEDS: cefTRIAXone SODIUM 1,000 MG in SODIUM CHLOR 0.9% AD-VAN 50 ML IV SCH (10:01)
--- NOTE | 2019-01-12 10:18 | Hospitalist Progress Note ---
Date of Service January 12, 2019 Assessment & Plan (1) Pneumonia: Panculture, negative for flu, Tamiflu DC'd, Rocephin and ZMax, Nebs (2) Acute febrile illness: Panculture-neg growth (3) Hyponatremia: IVFs stopped (4) Fall: Mostly due to recent Nasal congestion and left ear pressure Has been having unsteady gait CT head showed no acute intracranial abnormality CXR c Possible PNA Fever-Panculture, Flu neg Rocephin and Zmax Check CPK level PT/OT Fall precautions (5) Elevated troponin: Might be related to rhabdo due to Fall Denies any chest pain EKG showed no ischemic changes Continue Plavix, aspirin and statin (6) Nasal congestion: Treat Bacterial Febrile illness, still febrile (7) Afib: Rate controlled at 91 we will add Lopressor 12.5 mg p.o. every 12h, consult cardiology (8) Allergic rhinitis: Symptoms have been going on for 5 days prior to admission Continue loratadine, flonase and nasal saline (9) Hypertension: BP stable (10) CVA (cerebral vascular accident): Continue palvix/aspirin and statin stable Left Shoulder Pain Mostly due to fall xray of L shoulder-No Fracture (11) DVT prophylaxis: Heparin subq DC when afebrile for 24-48 hours CODE STATUS FUll no mech Subjective 87 year old male with PMH CVA, Allergic rhinitis, asthma, thyroid nodule, chronic constipation who present to the ER after a fall today. Pt said that for the last 5 days, he has been having nasal congestion, and pressure in his left ear. He said that his gait has been unsteady due to his balance since having nasal congestion and left ear pressure. Pt said that this morning while going to the bathroom, he said that he lost his balance and fell. He said that he was unable to get up. He said that it happened so fast and could not recall how and what caused him to fall. He said that he was on the floor for about 1 hr. He said that he must have pushed his life alert because the EMS came to his place to help him. He said that he did not hit his head during the fall. He said that he did not lose consciousness. He said that his left shoulder his tender. He said that he lives alone and very active. Denies any chest pain, palpitation, dizziness and fever. On HD 2 the patient was running fevers, he was made inpatient and pancultured, Rapid flu ordered too. ROS-No Headache, No Visual Changes, No Nausea, No Vomiting, No Fever, No Chills , No Neck Pain or Stiffness, No Chest Pain, No Palpitations, No SOB, No ARCINIEGA, No Cough, No Sputum, No Wheezing, No Abdominal Pain, No Diarrhea, No Hematemesis, No Hemoptysis, No Unexpected Weight Loss, No Flank pain, No Melena, No Hematochezia, No Frequency, No Urgency, No Burning, No Hematuria, No Rashes, No Diaphoresis. Appetite is Normal Physical Exam Gen-AAO x 3, NAD, febrile Head-Sore above R eye from fall, EOMI, PERRLA, Anicteric Sclera, No Posterior Pharyngeal Erythema Neck-Supple, No JVD, No Thyromegaly, No Masses, No LAD, No Bruits Lungs-Clear to Auscultation Bilaterally, No Rales, No Rhonchi, No Wheezing, No Crepitus Chest-No S4, +S1, +S2, No S3, No Murmurs, No Rubs, No Gallops, No Ectopy Abdomen-Soft, Bowel Sounds Present, Non Tender, Non Distended, No Hepatomegaly, No Splenomegaly, No Palpable Masses, No Rebound, No Rigidity, No Guarding Musculoskeletal-Full Range of Motion Bilaterally, No CVAT Extremities-No Cyanosis, No Clubbing, No Edema Nuero-Cranial Nerves II-XII grossly intact, Motor WNL, DTRs WNL, Strength WNL, Non Focal Psych-Normal Mood Physical Exam 2 Vital Signs (Past 24 Hours): Last Vital Signs Temp 37.1 C 01/12/19 07:21 Pulse 91 H 01/12/19 08:00 Resp 18 01/12/19 07:21 BP 129/82 01/12/19 07:21 Pulse Ox 90 01/12/19 07:21 Results & Data Laboratory Results Current Diagnoses Hypo-osmolality and hyponatremia (01/11/19) Essential (primary) hypertension (01/11/19) Cerebral infarction, unspecified (01/11/19) Pneumonia, unspecified organism (01/11/19) Allergic rhinitis, unspecified (01/11/19) Nasal congestion (01/11/19) Fever, unspecified (01/11/19) Abnormal levels of other serum enzymes (01/11/19) Unspecified fall, initial encounter (01/11/19) Allergies mold Allergy (Mild, Verified 01/10/19 17:24) pollen extracts Allergy (Mild, Verified 01/10/19 17:24) ALLERGYEXTR Allergy (Mild, Uncoded 01/10/19 17:24) unk Dust Mite Extract Allergy (Mild, Uncoded 01/10/19 17:24) unk Height/Weight/Isolation Height 5 ft 5 in Weight 58.8 kg Chemistry 01/10/19 01/11/19 01/12/19 14:55 03:36 05:38 Sodium 129 L 130 L 132 L Potassium 3.5 3.8 3.8 Chloride 98 101 103 Carbon Dioxide 26 26 23 Anion Gap 5.0 3.0 6.0 BUN 27 H 24 H 26 H Creatinine 1.20 1.14 1.19 Glucose 117 H 101 H 90 Urinalysis 01/11/19 14:50 Urine Color Dark Yellow Urine Appearance Clear Urine pH 6.5 Ur Specific [place] 1.024 Urine Protein 2+ H Urine Glucose (UA) Negative Urine Ketones Negative Urine Blood 3+ H Urine Nitrite Negative Urine Bilirubin Negative Microbiology 01/11/19 09:42 Blood Blood Culture - Pending 01/11/19 09:54 Blood Blood Culture - Pending _ (1) Hypertension Hypertension type: essential hypertension Qualified Code(s): I10 - Essential (primary) hypertension (2) CVA (cerebral vascular accident) CVA mechanism: unspecified Laterality of affected vessel: Precerebral and cerebral artery: Qualified Code(s): I63.9 - Cerebral infarction, unspecified
[2019-01-12] MEDS ORDERED: AMIODARONE / D5W 150 MG/100 ML BAG IV STA (10:29)
[2019-01-12] MEDS ORDERED: AMIODARONE IV BOLUS / DRIP IV STA (10:29)
[2019-01-12] MEDS ORDERED: AMIODARONE / D5W 360 MG/200 ML BAG IV SCH (11:00)
[2019-01-12] MEDS ORDERED: POLYETHYLENE (MIRALAX) 17 GM PACK PO PRN (11:31)
--- NOTE | 2019-01-12 14:05 | Consultation Report ---
DATE OF CONSULTATION: 01/12/2019 INPATIENT CARDIOLOGY CONSULTATION CONSULTATION REQUESTED BY: Dr. Sanford. REASON FOR CONSULTATION: New onset atrial fibrillation. HISTORY OF PRESENT ILLNESS: The patient is a very pleasant 88-year-old gentleman who was previously seen one time in our outpatient Cardiology Clinic with Dr. Estrella. He presented to [facility] Emergency Department on 01/10/2019 with a report of a fall. The patient states he was at home and really has been feeling well lately. He states that for 5 days prior to presentation, he was having lots of sinus congestion and pressure in his left ear. He has also noticed that his balance has become a little unsteady. That morning, he was in the bathroom getting ready for the day when he suddenly fell. He states he does not really remember the events and does not know how he fell. He denies experiencing any chest pain, shortness of breath, palpitations, lightheadedness, dizziness or syncope. He states he just went down. Luckily he is wearing a Life Alert type device that summoned EMS. They rolled to pick him up and bring him in the Emergency Department. He was admitted to Telemetry and was found to have pneumonia and was started on antibiotics. Then early in the a.m. of 01/12/2019, a little after 3:00 a.m., he went into atrial fibrillation with a controlled ventricular response. This is a new diagnosis for him and he actually did have a 2-week Zio patch monitor as an outpatient this winter that did not show any atrial fibrillation at all. This was done in part as a workup status post CVA that he suffered in 08/2018. At baseline, the patient states he ambulates on a regular basis without much issue. He actually exercises on a regular basis walking 1-2 miles a day. He states that other than last few days, he had 1 fall within the last year or so when he fell walking on a track and did break his nose. PAST SURGICAL HISTORY: 1. Cochlear implant. 2. Tonsillectomy as a child. 3. Finger surgery. 4. Colonoscopies. MEDICAL ILLNESSES: 1. Recent CVA. 2. Essential tremor. 3. Thyroid nodule. 4. Benign prostatic hypertrophy. FAMILY HISTORY: Noncontributory. SOCIAL HISTORY: Denies any alcohol, tobacco or recreational drug use. He lives at home. He is very active. REVIEW OF SYSTEMS: As per HPI. All other review of systems reviewed and negative at this time. ALLERGIES: No known drug allergies. MEDICATIONS AN OUTPATIENT: 1. Aspirin 81 mg daily. 2. Plavix 75 mg daily. 3. Atorvastatin 40 mg daily. 4. Flomax daily. 5. Proscar daily. 6. Flonase daily. 7. Atorvastatin 40 mg daily. PHYSICAL EXAMINATION: VITALS: Temperature 37.1, pulse 91, respiratory rate 12, blood pressure 129/82. GENERAL: Awake, alert, oriented x3 in no acute distress, out of bed in chair with daughter at the bedside. HEENT: Normocephalic, atraumatic. Pupils equal, round, reactive to light and accommodation. Extraocular muscles intact. Anicteric sclerae. Moist mucous membranes. NECK: No JVD or bruit. CARDIOVASCULAR: Irregularly irregular without any significant murmurs, rubs or gallops. PULMONARY: Clear to auscultation bilaterally. No rales, rhonchi or wheezing. ABDOMEN: Bowel sounds x4, soft. No rebound, guarding, tenderness. No organomegaly. EXTREMITIES: No clubbing, cyanosis or edema. +2 pedal pulses bilaterally. SKIN: Warm and dry. TEST RESULTS: A 2D echocardiogram performed on 09/05/2018 was read as mild concentric left ventricular hypertrophy, normal LV wall motion, EF 55%-60%, mild aortic valve sclerosis without stenosis, mild aortic regurgitation, mild mitral regurgitation, grade 1 diastolic dysfunction, intact interatrial septum. Telemetry review shows atrial fibrillation starting at approximately 0320 this a.m. LABORATORY STUDIES OF SIGNIFICANCE: CPK of 5900, troponin of 0.2. IMPRESSION: 1. Asymptomatic new onset atrial fibrillation with a CHADS2 score of 3. 2. Status post fall and possible rhabdo. 3. Recent CVA. RECOMMENDATIONS: It was my pleasure to see the patient in consultation today. The pathophysiology and treatment options of atrial fibrillation were discussed in great lengths with the patient and his daughter. Given his recent CVA, I do believe he would benefit from aggressive treatment and with his recent fall, I am not quite sure what to make of his anticoagulation candidacy. So given the fact that he has been in atrial fibrillation for less than 12 hours, I believe the most prudent course of action will be attempt a chemical cardioversion with amiodarone. I have reviewed the pros and cons of this medication with the patient and his daughter and they both agree with this option. They were counseled until we see how his balance is going for once his pneumonia clears, I would be hesitant to starting long-term anticoagulation and they agree. So, the patient will be continued to be monitored on telemetry and we will follow him along with you.
[2019-01-12] MEDS: GLUCOSAMINE SULFATE 500 MG CAP PO SCH ×2 (14:11→20:13)
[2019-01-12] MEDS: AMIODARONE / D5W 360 MG/200 ML BAG IV SCH (17:14)
[2019-01-12] MEDS: AZITHROMYCIN 500 MG in DEXTROSE 5% 250 ML IV SCH (19:46)
[2019-01-12] MEDS: ATORVASTATIN 40 MG TAB PO SCH (20:13)
[2019-01-12] MEDS ORDERED: METOPROLOL TARTRATE 25 MG TAB PO SCH (21:00)
[2019-01-13] MEDS: NSS + 20MEQ KCL 20 MEQ/1,000 ML BAG IV SCH (01:10)
[2019-01-13] MEDS: AMIODARONE / D5W 360 MG/200 ML BAG IV SCH ×2 (05:26→16:55)
[2019-01-13] MEDS: HEPARIN SOD 5,000 UNIT/0.5 ML VIAL SQ SCH (05:33)
[2019-01-13 05:48] LABS: Hematocrit (blood only) 29.6 % (42-52); Hemoglobin 10.5 g/dL (14.0-18.0); Mean Corpuscular Hgb Conc 35.5 g/dL (32-36); Mean Platelet Volume 9.9 fL (7.4-10.4); Platelet Count 135 K/uL (130-400); RDW Coefficient of Variation 12.4 % (11.5-14.5); RDW Standard Deviation 44.3 fL (36.4-46.3); Red Blood Count 3.05 M/uL (4.7-6.1); White Blood Count 8.15 K/uL (4.8-10.8)
[2019-01-13 06:14] LABS: BUN Creatinine Ratio 20.9 (10-20); Calcium 7.9 mg/dl (8.5-10.1); Creatinine Clr Calc Pharmacy 41.7 ml/min; Est GFR (African American) 73.3; Est GFR (Non-African American) 63.2
[2019-01-13 06:31] LABS: Basophils # (auto) 0.01 K/uL (0-0.2); Basophils % (auto) 0.1 %; Dohle Bodies 1+; Echinocytes 1+; Eosinophils % (auto) 1.2 %; Immature Granulocytes # (auto) 0.02 K/uL (0.00-0.02); Immature Granulocytes % (auto) 0.2 %; Lymphocytes # (auto) 0.71 K/uL (1.2-3.4); Lymphocytes % (auto) 8.7 %; Monocytes # (auto) 0.37 K/uL (0.11-0.59); Monocytes % (auto) 4.5 %; Neutrophils # (auto) 6.94 K/uL (1.4-6.5); Neutrophils % (auto) 85.3 %; Toxic Granulation Occasional; Toxic Vacuolation 1+
[2019-01-13] MEDS ORDERED: OPTIRAY 320 125ml IV PRN (08:29)
--- NOTE | 2019-01-13 08:44 | CT Scan Report ---
CT ANGIOGRAPHY OF THE CHEST, PULMONARY EMBOLUS PROTOCOL CLINICAL HISTORY: Fall. Respiratory difficulty. COMPARISON STUDY: Chest radiograph January 10, 2019. TECHNIQUE: Following IV administration of 120 mL of Optiray-320, helical axial images of the chest we re obtained utilizing the pulmonary embolus protocol. Maximal intensity projections and sagittal and coronal reformats were viewed on an independent 3D workstation. IV contrast was administered withou t complication. Automated exposure control was utilized for the study. A dose lowering technique wa s utilized adhering to the principles of ALARA. CT DOSE: 234.87 mGy.cm FINDINGS: No pulmonary emboli are identified although the segmental and subsegmental pulmonary arter ies are suboptimally assessed due to respiratory motion. The heart is mildly enlarged. There is no pe ricardial effusion. There are no enlarged thoracic lymph nodes. There is no pneumothorax. Moderate ri ght and small left pleural effusions are noted. Extensive right middle lobe consolidation has develop ed since prior chest radiograph. Mild right upper lobe airspace opacity is noted as well as mild righ t lower lobe airspace opacity. There is suspected mild pulmonary edema as well. There is no acute tho racic spine fracture. Upper abdomen is grossly unremarkable. There is evidence for mild volume overlo ad. Bronchial wall thickening is noted. IMPRESSION: 1. No pulmonary emboli identified although segmental and subsegmental pulmonary arteries suboptimally assessed given respiratory motion. 2. Interval development of extensive right middle lobe consolidation with airspace opacities within t he right upper and right lower lobes. The findings favor pneumonia although asymmetric pulmonary michelle a could appear similar. 3. Evidence for volume overload. Suspected mild pulmonary edema. Mild cardiomegaly. 4. Moderate right and small left pleural effusions. Electronically signed by: Marcus Cho M.D. 01/13/2019 8:42 AM
[2019-01-13] MEDS: MUPIROCIN 2% OINT 22 GM TUBE EXT SCH ×2 (08:49→21:12)
[2019-01-13] MEDS: LORATADINE 10 MG TAB PO SCH (08:50)
[2019-01-13] MEDS: MULTIVITAMIN TAB PO SCH (08:51)
[2019-01-13] MEDS: TAMSULOSIN HCL 0.4 MG CAP PO SCH (08:51)
[2019-01-13] MEDS: FLUTICASONE PROPIONATE NA SPR 16 GM BTL SCH (08:51)
[2019-01-13] MEDS: DOCUSATE SODIUM 100 MG CAP PO SCH (08:51)
[2019-01-13] MEDS: GLUCOSAMINE SULFATE 500 MG CAP PO SCH ×3 (08:52→21:13)
[2019-01-13] MEDS: CLOPIDOGREL BISULFATE 75 MG TAB PO SCH (08:52)
[2019-01-13] MEDS: FINASTERIDE 5 MG TAB PO SCH (08:52)
[2019-01-13] MEDS: cefTRIAXone SODIUM 1,000 MG in SODIUM CHLOR 0.9% AD-VAN 50 ML IV SCH (08:53)
[2019-01-13] MEDS: CHOLECALCIFEROL 1,000 UNITS TAB PO SCH (08:53)
[2019-01-13] MEDS ORDERED: Heparin IV Standard *NO* Bolus IV SCH (09:27)
--- NOTE | 2019-01-13 09:34 | Cardiology Progress Note ---
Date of Service January 13, 2019 Assessment & Plan (1) Afib: The patient has persistent atrial fibrillation with rate control. I believe his syncope was the result of dehydration and his pneumonia and not related to the arrhythmia which started after admission. He does have a history of a recent stroke and I believe he is at risk for additional embolic events due to the atrial fibrillation. I would recommend starting him on IV heparin today with plans for long-term use of Coumadin. I would continue the amiodarone infusion at present. (2) Pneumonia: Treatment of antibiotics with IM (3) Syncope: (4) CHF (congestive heart failure): The patient is currently euvolemic and his exam today as well as the CT of the chest indicate congestive heart failure which is most likely due to diastolic dysfunction and the atrial fibrillation. I will give him a dose of Lasix today and we will stop his IV fluids. Subjective This is an 88-year-old male patient who had a recent stroke. As part of that workup he had a long-term monitor the failed to show any atrial fibrillation. The patient was doing well at home and then fell in his bathroom. He had a medic alert and was brought to the hospital by ambulance. After arrival here he was noted to be dehydrated and have a pneumonia. Patient received appropriate treatment. Soon after his hospital admission he went into atrial fibrillation. He was started on amiodarone infusion. Unfortunately, he has maintained atrial fibrillation with a controlled heart rate. CT of the chest indicates no pulmonary emboli but does show consolidation of his right middle lobe consistent with a pneumonia. There is also evidence on the CT for pulmonary edema most likely heart failure on the basis of diastolic dysfunction. I had a long discussion with the patient and his daughter who is here today regarding treatment options including anticoagulation. At this point I believe the patient should be started on anticoagulation. He will be given IV heparin without a bolus and given his first dose of Coumadin tonight. At present he is tolerating the atrial fibrillation is hemodynamically stable. Physical Exam 2 Vital Signs (Past 24 Hours): Last Vital Signs Temp 36.9 C 01/13/19 07:59 Pulse 74 01/13/19 07:59 Resp 18 01/13/19 07:59 BP 129/66 01/13/19 07:59 Pulse Ox 95 01/13/19 07:59 Physical Exam: General: no acute distress and stated age Head: normocephalic, no masses, lesions, tenderness or abnormalities Eyes: conjunctiva are pink and non-injected, sclera clear Neck: supple, no adenopathy, no bruits, normal jugular venous pulse, no hepatojugular reflux Chest: normal shape and normal respiratory effort Lungs: Right middle lobe decreased breath sounds. Rales at the bases bilaterally. Cardiac Exam: - irregular rate & rhythm, no murmurs gallops or rubs - normal S1 , normal S2 Pulses: 2(+) throughout Abdomen: abdomen soft, non-tender, no abnormal masses and no hepatosplenomegaly Musculoskeletal: no gait disturbance, no joint inflammation, no deforming arthritis Extremities: no edema and no cyanosis Neuro: grossly normal exam Results & Data Laboratory Results Laboratory Results - last 24 hr 01/13/19 01/13/19 01/13/19 05:20 05:20 05:20 WBC 8.15 RBC 3.05 L Hgb 10.5 L Hct 29.6 L MCV 97.0 MCH 34.4 H MCHC 35.5 RDW Std Deviation 44.3 RDW Coeff of Garo 12.4 Plt Count 135 MPV 9.9 Immature Gran % (Auto) 0.2 Neut % (Auto) 85.3 Lymph % (Auto) 8.7 [place] % (Auto) 4.5 Eos % (Auto) 1.2 Baso % (Auto) 0.1 Immature Gran # (Auto) 0.02 Neut # (Auto) 6.94 H Lymph # (Auto) 0.71 L [place] # (Auto) 0.37 Eos # (Auto) 0.10 Baso # (Auto) 0.01 Toxic Granulation Occasional Toxic Vacuolation 1+ Dohle Bodies 1+ Echinocytes 1+ Sodium 133 L Potassium 4.0 Chloride 104 Carbon Dioxide 22 Anion Gap 7.0 BUN 22 H Creatinine 1.06 Est Cr Clr Drug Dosing 41.7 Est GFR ( Amer) 73.3 Est GFR (Non-Af Amer) 63.2 BUN/Creatinine Ratio 20.9 H Glucose 96 Calcium 7.9 L TSH 3.010 Medications Administered Current Inpatient Medications Acetaminophen (Tylenol) 650 mg PO Q6H PRN PRN Reason: pain/fever Stop: 02/09/19 22:51 Last Admin: 01/11/19 19:43 Dose: 650 mg Atorvastatin Calcium (Lipitor) 40 mg PO QPM [facility] Stop: 02/09/19 20:59 Last Admin: 01/12/19 20:13 Dose: 40 mg Clopidogrel Bisulfate (Plavix) 75 mg PO DAILY [facility] Stop: 02/10/19 08:59 Last Admin: 01/13/19 08:52 Dose: 75 mg Docusate Sodium (Colace) 100 mg PO DAILY [facility] Stop: 02/12/19 08:59 Last Admin: 01/13/19 08:51 Dose: 100 mg Finasteride (Proscar) 5 mg PO DAILY [facility] Stop: 02/10/19 08:59 Last Admin: 01/13/19 08:52 Dose: 5 mg Fluticasone Propionate (Flonase) 2 sprays NA DAILY [facility] Stop: 02/12/19 08:59 Last Admin: 01/13/19 08:51 Dose: 2 sprays Glucosamine Sulfate (Glucosamine Sulfate) 500 mg PO TID [facility] Stop: 02/11/19 13:59 Last Admin: 01/13/19 08:52 Dose: 500 mg Heparin Sodium/Dextrose () 1 ea IV Q15M [facility]; Protocol Stop: 01/13/19 11:13 Ceftriaxone Sodium 1,000 mg/ (Sodium Chloride) 50 mls @ 100 mls/hr IV Q24H [facility] ; Protocol Stop: 01/18/19 10:29 Last Infusion: 01/13/19 09:31 Dose: 100 mls/hr Amiodarone HCl/Dextrose (Nexterone / D5w) 360 mg in 200 mls @ 16.667 mls/hr IV .Q12H [facility] Stop: 02/11/19 16:59 Last Admin: 01/13/19 05:26 Dose: 0.5 mg/min, 16.7 mls/hr Furosemide 40 mg/ Syringe 4 mls @ 4 mls/min IV 0945 ONE Stop: 01/13/19 09:46 Ioversol (Optiray 320 125ml) 120 ml IV ONCE PRN PRN Reason: Interaction Checking Stop: 01/17/19 08:28 Last Admin: 01/13/19 08:29 Dose: 120 ml Ipratropium [place] (Atrovent Hfa) 1 puffs INH Q6H PRN PRN Reason: Congestion Stop: 02/09/19 19:24 Last Admin: 01/11/19 08:05 Dose: 1 puffs Loratadine (Claritin) 10 mg PO DAILY [facility] Stop: 02/10/19 08:59 Last Admin: 01/13/19 08:50 Dose: 10 mg Miscellaneous (Order Awaiting Action) 1 ea N/A QS [facility] Stop: 02/10/19 00:00 Last Admin: 01/13/19 08:49 Dose: Not Given Miscellaneous (Order Awaiting Action) 1 ea N/A QS [facility] Stop: 02/11/19 15:59 Last Admin: 01/13/19 08:49 Dose: Not Given Multivitamins (Multivitamin Tab) 1 tab PO QAM [facility] Stop: 02/12/19 08:59 Last Admin: 01/13/19 08:51 Dose: 1 tab Mupirocin (Bactroban 2%) 1 appln EXT BID [facility]; Protocol Stop: 02/09/19 20:59 Last Admin: 01/13/19 08:49 Dose: 1 appln Polyethylene Glycol (Miralax Powder Packet) 17 gm PO DAILY PRN PRN Reason: Constipation Stop: 02/11/19 11:30 Tamsulosin HCl (Flomax) 0.4 mg PO DAILY [facility] Stop: 02/10/19 08:59 Last Admin: 01/13/19 08:51 Dose: 0.4 mg Vitamin D (Vitamin D3) 2,000 units PO DAILY [facility]; Protocol Stop: 02/10/19 08:59 Last Admin: 01/13/19 08:53 Dose: 2,000 units Warfarin Sodium (Coumadin) 7.5 mg PO DAILY@1600 [facility] Stop: 02/12/19 15:59 _ (1) Syncope Encounter type: Syncope type: unspecified Qualified Code(s): R55 - Syncope and collapse
[2019-01-13] MEDS ORDERED: FUROSEMIDE 40 MG in SYRINGE 0 ML IV ONE (09:45)
[2019-01-13] MEDS: HEPARIN STANDARD DEXTROSE 25,000 UNITS/500 ML IV SCH (10:34)
[2019-01-13 10:53] LABS: Partial Thromboplastin Ratio 1.5; Partial Thromboplastin Time 38.5 Seconds (21.0-31.0); Prothrombin Time 10.3 Seconds (9.0-12.0)
--- NOTE | 2019-01-13 12:59 | Hospitalist Progress Note ---
Date of Service January 13, 2019 Assessment & Plan (1) Pneumonia: Panculture, negative for flu, Tamiflu DC'd, Rocephin, ZMax DCd for AFIB, Nebs (2) Acute febrile illness: Panculture-neg growth (3) Hyponatremia: IVFs stopped (4) Fall: Mostly due to recent Nasal congestion and left ear pressure Has been having unsteady gait CT head showed no acute intracranial abnormality CXR c Possible PNA Fever-Panculture, Flu neg Rocephin PT/OT Fall precautions (5) Elevated troponin: Might be related to rhabdo due to Fall Denies any chest pain EKG showed no ischemic changes Continue Plavix, aspirin and statin (6) Nasal congestion: Treat Bacterial Febrile illness, still febrile (7) Afib: Rate controlled at 72, Lopressor stopped, Cards on case TSH normal, Heparin gtt today Vascular Congestion on CTA-Lasix, Stop IVFs Amio, Warfarin started (8) Allergic rhinitis: Symptoms have been going on for 5 days prior to admission Continue loratadine, flonase and nasal saline (9) Hypertension: BP stable (10) CVA (cerebral vascular accident): Continue palvix/aspirin and statin stable Left Shoulder Pain Mostly due to fall xray of L shoulder-No Fracture (11) DVT prophylaxis: Heparin subq DC when afebrile for 24-48 hours CODE STATUS FUll no [facility] Subjective 87 year old male with PMH CVA, Allergic rhinitis, asthma, thyroid nodule, chronic constipation who present to the ER after a fall today. Pt said that for the last 5 days, he has been having nasal congestion, and pressure in his left ear. He said that his gait has been unsteady due to his balance since having nasal congestion and left ear pressure. Pt said that this morning while going to the bathroom, he said that he lost his balance and fell. He said that he was unable to get up. He said that it happened so fast and could not recall how and what caused him to fall. He said that he was on the floor for about 1 hr. He said that he must have pushed his life alert because the EMS came to his place to help him. He said that he did not hit his head during the fall. He said that he did not lose consciousness. He said that his left shoulder his tender. He said that he lives alone and very active. Denies any chest pain, palpitation, dizziness and fever. On HD 2 the patient was running fevers, he was made inpatient and pancultured, Rapid flu ordered too. ROS-No Headache, No Visual Changes, No Nausea, No Vomiting, No Fever, No Chills , No Neck Pain or Stiffness, No Chest Pain, No Palpitations, No SOB, No ARCINIEGA, No Cough, No Sputum, No Wheezing, No Abdominal Pain, No Diarrhea, No Hematemesis, No Hemoptysis, No Unexpected Weight Loss, No Flank pain, No Melena, No Hematochezia, No Frequency, No Urgency, No Burning, No Hematuria, No Rashes, No Diaphoresis. Appetite is Normal Physical Exam Gen-AAO x 3, NAD, febrile Head-Sore above R eye from fall, EOMI, PERRLA, Anicteric Sclera, No Posterior Pharyngeal Erythema Neck-Supple, No JVD, No Thyromegaly, No Masses, No LAD, No Bruits Lungs-Clear to Auscultation Bilaterally, No Rales, No Rhonchi, No Wheezing, No Crepitus Chest-No S4, +S1, +S2, No S3, No Murmurs, No Rubs, No Gallops, +Ectopy, AFIB Abdomen-Soft, Bowel Sounds Present, Non Tender, Non Distended, No Hepatomegaly, No Splenomegaly, No Palpable Masses, No Rebound, No Rigidity, No Guarding Musculoskeletal-Full Range of Motion Bilaterally, No CVAT Extremities-No Cyanosis, No Clubbing, No Edema Nuero-Cranial Nerves II-XII grossly intact, Motor WNL, DTRs WNL, Strength WNL, Non Focal Psych-Normal Mood Physical Exam 2 Vital Signs (Past 24 Hours): Last Vital Signs Temp 36.5 C 01/13/19 11:52 Pulse 72 01/13/19 11:52 Resp 18 01/13/19 11:52 BP 119/63 01/13/19 11:52 Pulse Ox 95 01/13/19 11:52 Results & Data Laboratory Results Current Diagnoses Hypo-osmolality and hyponatremia (01/11/19) Essential (primary) hypertension (01/11/19) Unspecified atrial fibrillation (01/11/19) Cerebral infarction, unspecified (01/11/19) Pneumonia, unspecified organism (01/11/19) Allergic rhinitis, unspecified (01/11/19) Nasal congestion (01/11/19) Fever, unspecified (01/11/19) Abnormal levels of other serum enzymes (01/11/19) Unspecified fall, initial encounter (01/11/19) Allergies mold Allergy (Mild, Verified 01/10/19 17:24) pollen extracts Allergy (Mild, Verified 01/10/19 17:24) ALLERGYEXTR Allergy (Mild, Uncoded 01/10/19 17:24) unk Dust Mite Extract Allergy (Mild, Uncoded 01/10/19 17:24) unk Height/Weight/Isolation Height 5 ft 5 in Weight 58.9 kg Chemistry 01/12/19 01/13/19 05:38 05:20 Sodium 132 L 133 L Potassium 3.8 4.0 Chloride 103 104 Carbon Dioxide 23 22 Anion Gap 6.0 7.0 BUN 26 H 22 H Creatinine 1.19 1.06 Glucose 90 96 Urinalysis 01/11/19 14:50 Urine Color Dark Yellow Urine Appearance Clear Urine pH 6.5 Ur Specific [place] 1.024 Urine Protein 2+ H Urine Glucose (UA) Negative Urine Ketones Negative Urine Blood 3+ H Urine Nitrite Negative Urine Bilirubin Negative Microbiology 01/11/19 09:54 Blood Blood Culture - Preliminary No growth to date. 01/11/19 09:42 Blood Blood Culture - Preliminary No growth to date. Diagnostic Findings CTA-No PE, +effusions, RML, RLL, RUL PNA but worst is RML _ (1) Hypertension Hypertension type: essential hypertension Qualified Code(s): I10 - Essential (primary) hypertension (2) CVA (cerebral vascular accident) CVA mechanism: unspecified Laterality of affected vessel: Precerebral and cerebral artery: Qualified Code(s): I63.9 - Cerebral infarction, unspecified
[2019-01-13] MEDS ORDERED: WARFARIN SOD 7.5 MG TAB PO SCH (16:00)
[2019-01-13 17:01] LABS: Partial Thromboplastin Ratio 2.4
[2019-01-13] MEDS: ATORVASTATIN 40 MG TAB PO SCH (21:13)
[2019-01-14] MEDS: AMIODARONE / D5W 360 MG/200 ML BAG IV SCH (05:04)
[2019-01-14 06:47] LABS: Hematocrit (blood only) 27.9 % (42-52); Hemoglobin 9.9 g/dL (14.0-18.0); Mean Corpuscular Hgb Conc 35.5 g/dL (32-36); Mean Corpuscular Volume 95.9 fL (80-100); Mean Platelet Volume 9.8 fL (7.4-10.4); Platelet Count 148 K/uL (130-400); RDW Coefficient of Variation 12.5 % (11.5-14.5); RDW Standard Deviation 43.6 fL (36.4-46.3); Red Blood Count 2.91 M/uL (4.7-6.1); White Blood Count 5.68 K/uL (4.8-10.8)
[2019-01-14 07:06] LABS: INR 1.2 (0.9-1.1); Partial Thromboplastin Ratio 2.8; Prothrombin Time 11.6 Seconds (9.0-12.0)
[2019-01-14 07:25] LABS: BUN Creatinine Ratio 19.2 (10-20); Creatinine Clr Calc Pharmacy 37.7 ml/min; Est GFR (Non-African American) 56.1; Potassium 3.2 mmol/L (3.5-5.1)
[2019-01-14 07:28] LABS: Partial Thromboplastin Time 73.1 Seconds (21.0-31.0)
[2019-01-14] MEDS: MUPIROCIN 2% OINT 22 GM TUBE EXT SCH ×2 (08:22→19:58)
[2019-01-14] MEDS: TAMSULOSIN HCL 0.4 MG CAP PO SCH (08:23)
[2019-01-14] MEDS: LORATADINE 10 MG TAB PO SCH (08:23)
[2019-01-14] MEDS: FLUTICASONE PROPIONATE NA SPR 16 GM BTL SCH (08:23)
[2019-01-14] MEDS: DOCUSATE SODIUM 100 MG CAP PO SCH (08:23)
[2019-01-14] MEDS: FINASTERIDE 5 MG TAB PO SCH (08:24)
[2019-01-14] MEDS: GLUCOSAMINE SULFATE 500 MG CAP PO SCH ×3 (08:24→20:00)
[2019-01-14] MEDS: CLOPIDOGREL BISULFATE 75 MG TAB PO SCH (08:24)
[2019-01-14] MEDS: MULTIVITAMIN TAB PO SCH (08:24)
[2019-01-14] MEDS: CHOLECALCIFEROL 1,000 UNITS TAB PO SCH (08:25)
--- NOTE | 2019-01-14 08:48 | Discharge Summary ---
Date of Service January 14, 2019 Admission HPI Per Admitting Provider 87 year old male with PMH CVA, Allergic rhinitis, asthma, thyroid nodule, chronic constipation who present to the ER after a fall today. Pt said that for the last 5 days, he has been having nasal congestion, and pressure in his left ear. He said that his gait has been unsteady due to his balance since having nasal congestion and left ear pressure. Pt said that this morning while going to the bathroom, he said that he lost his balance and fell. He said that he was unable to get up. He said that it happened so fast and could not recall how and what caused him to fall. He said that he was on the floor for about 1 hr. He said that he must have pushed his life alert because the EMS came to his place to help him. He said that he did not hit his head during the fall. He said that he did not lose consciousness. He said that his left shoulder his tender. He said that he lives alone and very active. Denies any chest pain, palpitation, dizziness and fever. Admission Exam Per Admitting Provider General- No acute distress Head- atraumatic Eyes- PERRL, EOMI, ENT- Erythema in L hear. swelling on turbinates Neck- supple, no JVD Lungs- cNo wheezing Heart- regular rhythm; no murmur Abdomen- normal bowel sounds, soft, nontender Extremities- no calf tenderness, Left shoulder pain Neuro- alert, oriented x 3; PERRL, EOMI; no facial palsy; no dysarthria Skin- warm & dry Principal Diagnosis (1) Pneumonia: (2) Acute febrile illness: (3) Hyponatremia: (4) Fall: (5) Elevated troponin: (6) Nasal congestion: (7) Afib: (8) Allergic rhinitis: (9) Hypertension: (10) CVA (cerebral vascular accident): (11) AFIB Discharge Exam ROS-No Headache, No Visual Changes, No Nausea, No Vomiting, No Fever, No Chills , No Neck Pain or Stiffness, No Chest Pain, No Palpitations, No SOB, No ARCINIEGA, No Cough, No Sputum, No Wheezing, No Abdominal Pain, No Diarrhea, No Hematemesis, No Hemoptysis, No Unexpected Weight Loss, No Flank pain, No Melena, No Hematochezia, No Frequency, No Urgency, No Burning, No Hematuria, No Rashes, No Diaphoresis. Appetite is Normal Physical Exam Gen-AAO x 3, NAD, Afebrile Head-NCAT, EOMI, PERRLA, Anicteric Sclera, No Posterior Pharyngeal Erythema Neck-Supple, No JVD, No Thyromegaly, No Masses, No LAD, No Bruits Lungs-Clear to Auscultation Bilaterally, No Rales, No Rhonchi, No Wheezing, No Crepitus Chest-No S4, +S1, +S2, No S3, No Murmurs, No Rubs, No Gallops, No Ectopy Abdomen-Soft, Bowel Sounds Present, Non Tender, Non Distended, No Hepatomegaly, No Splenomegaly, No Palpable Masses, No Rebound, No Rigidity, No Guarding Musculoskeletal-Full Range of Motion Bilaterally, No CVAT Extremities-No Cyanosis, No Clubbing, No Edema Nuero-Cranial Nerves II-XII grossly intact, Motor WNL, DTRs WNL, Strength WNL, Non Focal Psych-Normal Mood Discharge Data Allergies Allergy/AdvReac Type Severity Reaction Status Date / Time mold Allergy Mild Verified 01/10/19 17:24 pollen extracts Allergy Mild Verified 01/10/19 17:24 ALLERGYEXTR Allergy Mild unk Uncoded 01/10/19 17:24 Dust Mite Extract Allergy Mild unk Uncoded 01/10/19 17:24 Consultations 01/10/19 16:46 ED Decision to Admit Stat 01/12/19 09:52 Consult Cardiology Routine Ordered Studies 01/10/19 15:01 CT head/brain wo con Stat 01/10/19 15:05 CT cervical spine wo con Stat 01/13/19 06:49 CT angio chest PE protocol Routine Current Diagnoses Hypo-osmolality and hyponatremia (01/11/19) Essential (primary) hypertension (01/11/19) Unspecified atrial fibrillation (01/11/19) Cerebral infarction, unspecified (01/11/19) Pneumonia, unspecified organism (01/11/19) Allergic rhinitis, unspecified (01/11/19) Nasal congestion (01/11/19) Fever, unspecified (01/11/19) Abnormal levels of other serum enzymes (01/11/19) Unspecified fall, initial encounter (01/11/19) Allergies mold Allergy (Mild, Verified 01/10/19 17:24) pollen extracts Allergy (Mild, Verified 01/10/19 17:24) ALLERGYEXTR Allergy (Mild, Uncoded 01/10/19 17:24) unk Dust Mite Extract Allergy (Mild, Uncoded 01/10/19 17:24) unk Height/Weight/Isolation Height 5 ft 5 in Weight 58.8 kg Chemistry 01/13/19 01/14/19 05:20 06:15 Sodium 133 L 134 L Potassium 4.0 3.2 L D Chloride 104 103 Carbon Dioxide 22 23 Anion Gap 7.0 8.0 BUN 22 H 22 H Creatinine 1.06 1.17 Glucose 96 99 Microbiology 01/11/19 09:54 Blood Blood Culture - Preliminary No growth to date. 01/11/19 09:42 Blood Blood Culture - Preliminary No growth to date. Hospital Course (1) Pneumonia: DC on Omnicef (2) Acute febrile illness: Panculture-neg growth (3) Hyponatremia: resolved (4) Fall: Mostly due to recent Nasal congestion and left ear pressure Has been having unsteady gait CT head showed no acute intracranial abnormality CXR and CTC revealed PNA Fever-Panculture, Flu neg Afeb 72H (5) Elevated troponin: EKG showed no ischemic changes Continue Plavix, aspirin and statin (6) Nasal congestion: Treat Bacterial Febrile illness, still febrile (7) Afib: Rate controlled Amio, Warfarin, Back in NSR TSH normal, (8) Allergic rhinitis: Symptoms have been going on for 5 days prior to admission Continue loratadine, flonase and nasal saline (9) Hypertension: BP stable (10) CVA (cerebral vascular accident): Continue palvix/aspirin and statin stable Left Shoulder Pain Mostly due to fall xray of L shoulder-No Fracture (11) DVT prophylaxis: DC today Total Time Total Time Spent Total Time Spent (In Minutes): 55 mins Total Time Includes: Examination of the Patient, Discharge Planning, Medication Reconciliation and Communication With Other Providers Discharge Plan Discharge Items Patient Disposition: Home - Self-Care Reason For Visit: FALL Discharge Diagnosis: (1) Pneumonia: (2) Acute febrile illness: (3) Hyponatremia: (4) Fall: (5) Elevated troponin: (6) Nasal congestion: (7) Afib: (8) Allergic rhinitis: (9) Hypertension: (10) CVA (cerebral vascular accident): (11) AFIB Discharge Goals: Improve function Activity: Resume your previous activity Lifting: Gradually increase as tolerated Bathing: No limitations Sexual Activity: When tolerated Exercise/Sports: Gradually increase as tolerated Driving/Machine Use: No limitations Weightbearing: Left weightbearing and Right weightbearing Non-emergency contact: Primary Care Provider and Director Of Medical Review Call non-emergency contact if: you have any medication questions Follow-up/Referrals: Eladio Bright MD [Primary Care Provider] - (Call for first opening and make appt with Warfarin clinic, I could not get through to [facility] Appt Line) Wade Carter DO [Director Of Medical Review] - (Call for first opening and make appt ) Diet: Heart Healthy Addtl Provider Instructions: Monitor INR Prescriptions: New warfarin 2 mg tablet 2 mg PO DAILY Qty: 90 RF: 0 amiodarone 200 mg tablet 200 mg PO Q12H 60 Days Qty: 120 RF: 0 cefdinir 300 mg capsule 300 mg PO BID 10 Days Qty: 20 RF: 0 Continue atorvastatin 40 mg Tablet 40 mg PO QPM RF: 0 multivitamin [Multiple Vitamins] Tablet 1 tab PO QAM RF: 0 polyethylene glycol 3350 [Miralax] 17 gram Powder In Packet 17 g PO DAILY PRN (Reason: Constipation) RF: 0 glucosamine sulfate [Glucosamine] 500 mg Tablet 1 tab PO TID RF: 0 clopidogrel 75 mg Tablet 75 mg PO DAILY RF: 0 docusate sodium 100 mg Capsule 100 mg PO DAILY RF: 0 fluticasone 50 mcg/actuation [place],Suspension 2 spray Intranasal DAILY RF: 0 ipratropium bromide 0.03 % [place],Non-Aerosol 2 spray INTRANASAL BID RF: 0 loratadine 10 mg Tablet 10 mg PO DAILY RF: 0 cyclosporine 0.05 % [place] 1 drp OPHTHALMIC (EYE) Q12H RF: 0 cholecalciferol (vitamin D3) 2,000 unit Tablet 2,000 unit PO DAILY RF: 0 mupirocin calcium 1 applic topical BID RF: 0 tamsulosin 0.4 mg capsule 1 cap PO DAILY RF: 0 finasteride 5 mg tablet 1 tab PO DAILY RF: 0 acetaminophen [Tylenol Extra Strength] 500 mg Tablet 1 tab PO DAILY PRN (Reason: Pain) RF: 0 Stand-Alone Forms: My [facility] Discharge Orders: Discharge Order (Routine); Ordered 01/14/19 Ordered By: Enrique Sanford Admission Data Admit Date/Time: 01/11/19 09:29 Attending Provider: Enrique Sanford Admit Provider: Mac Brooke Primary Care Provider: Eladio Bright Other Providers: Mac Brooke ; Sebastián Mast Service: Telemetry Other Pending Studies at Discharge: No
[2019-01-14] MEDS ORDERED: POTASSIUM CHLORIDE 20 MEQ TABCR PO STA (09:22)
[2019-01-14] MEDS: cefTRIAXone SODIUM 1,000 MG in SODIUM CHLOR 0.9% AD-VAN 50 ML IV SCH (10:30)
[2019-01-14] MEDS: HEPARIN STANDARD DEXTROSE 25,000 UNITS/500 ML IV SCH (12:27)
--- NOTE | 2019-01-14 12:29 | Cardiology Progress Note ---
Date of Service January 14, 2019 Assessment & Plan (1) Afib: The patient converted to normal sinus rhythm earlier this morning. I will switch him to oral amiodarone 200 mg 3 times daily to continue loading. His INR is still subtherapeutic at 1.2. After discharge she will need early follow-up in the coag clinic which I will arrange through our office. (2) Pneumonia: Treatment of antibiotics with IM (3) Syncope: (4) CHF (congestive heart failure): By exam today I believe his congestive heart failure has resolved. Subjective This is an 88-year-old male patient who had a recent stroke. As part of that workup he had a long-term monitor the failed to show any atrial fibrillation. The patient was doing well at home and then fell in his bathroom. He had a medic alert and was brought to the hospital by ambulance. After arrival here he was noted to be dehydrated and have a pneumonia. Patient received appropriate treatment. Soon after his hospital admission he went into atrial fibrillation. He was started on amiodarone infusion. Early this morning he converted to normal sinus rhythm. Overall he is feeling better today. Physical Exam 2 Vital Signs (Past 24 Hours): Last Vital Signs Temp 36.5 C 01/14/19 11:28 Pulse 62 01/14/19 11:28 Resp 18 01/14/19 11:28 BP 126/68 01/14/19 11:28 Pulse Ox 98 01/14/19 11:28 Physical Exam: General: no acute distress and stated age Head: normocephalic, no masses, lesions, tenderness or abnormalities Eyes: conjunctiva are pink and non-injected, sclera clear Neck: supple, no adenopathy, no bruits, normal jugular venous pulse, no hepatojugular reflux Chest: normal shape and normal respiratory effort Lungs: clear to auscultation and percussion Cardiac Exam: - regular rate & rhythm, no murmurs gallops or rubs - normal S1, normal S2 Pulses: 2(+) throughout Abdomen: abdomen soft, non-tender, no abnormal masses and no hepatosplenomegaly Musculoskeletal: no gait disturbance, no joint inflammation, no deforming arthritis Extremities: no edema and no cyanosis Neuro: grossly normal exam Results & Data Laboratory Results Laboratory Results - last 24 hr 02/16/19 02/17/19 02/17/19 16:31 06:15 06:15 WBC 5.68 RBC 2.91 L Hgb 9.9 L Hct 27.9 L MCV 95.9 MCH 34.0 MCHC 35.5 RDW Std Deviation 43.6 RDW Coeff of Garo 12.5 Plt Count 148 MPV 9.8 PT 11.6 INR 1.2 H APTT 63.0 H* 73.1 H* PTT Ratio 2.4 2.8 Sodium Potassium Chloride Carbon Dioxide Anion Gap BUN Creatinine Est Cr Clr Drug Dosing Est GFR ( Amer) Est GFR (Non-Af Amer) BUN/Creatinine Ratio Glucose Calcium 01/14/19 06:15 WBC RBC Hgb Hct MCV MCH MCHC RDW Std Deviation RDW Coeff of Garo Plt Count MPV PT INR APTT PTT Ratio Sodium 134 L Potassium 3.2 L D Chloride 103 Carbon Dioxide 23 Anion Gap 8.0 BUN 22 H Creatinine 1.17 Est Cr Clr Drug Dosing 37.7 Est GFR ( Amer) 65.0 Est GFR (Non-Af Amer) 56.1 BUN/Creatinine Ratio 19.2 Glucose 99 Calcium 8.0 L Medications Administered Current Inpatient Medications Acetaminophen (Tylenol) 650 mg PO Q6H PRN PRN Reason: pain/fever Stop: 02/09/19 22:51 Last Admin: 01/11/19 19:43 Dose: 650 mg Amiodarone HCl (Cordarone) 200 mg PO TIDM [facility] Stop: 02/13/19 16:59 Atorvastatin Calcium (Lipitor) 40 mg PO QPM RHETT Stop: 02/09/19 20:59 Last Admin: 01/13/19 21:13 Dose: 40 mg Clopidogrel Bisulfate (Plavix) 75 mg PO DAILY RHETT Stop: 02/10/19 08:59 Last Admin: 01/14/19 08:24 Dose: 75 mg Docusate Sodium (Colace) 100 mg PO DAILY RHETT Stop: 02/12/19 08:59 Last Admin: 01/14/19 08:23 Dose: 100 mg Finasteride (Proscar) 5 mg PO DAILY RHETT Stop: 02/10/19 08:59 Last Admin: 01/14/19 08:24 Dose: 5 mg Fluticasone Propionate (Flonase) 2 sprays NA DAILY RHETT Stop: 02/12/19 08:59 Last Admin: 01/14/19 08:23 Dose: 2 sprays Glucosamine Sulfate (Glucosamine Sulfate) 500 mg PO TID [facility] Stop: 02/11/19 13:59 Last Admin: 01/14/19 08:24 Dose: 500 mg Ceftriaxone Sodium 1,000 mg/ (Sodium Chloride) 50 mls @ 100 mls/hr IV Q24H [facility] ; Protocol Stop: 01/18/19 10:29 Last Infusion: 01/14/19 11:12 Dose: 100 mls/hr Heparin Sodium/Dextrose (Heparin Sodium/Dextrose) 25,000 units in 500 mls @ 20 mls/hr IV .[id number] [facility]; Protocol Stop: 02/12/19 10:07 Last Admin: 01/14/19 12:27 Dose: 1,000 units/hr, 20 mls/hr Ioversol (Optiray 320 125ml) 120 ml IV ONCE PRN PRN Reason: Interaction Checking Stop: 01/17/19 08:28 Last Admin: 01/13/19 08:29 Dose: 120 ml Ipratropium [place] (Atrovent Hfa) 1 puffs INH Q6H PRN PRN Reason: Congestion Stop: 02/09/19 19:24 Last Admin: 01/11/19 08:05 Dose: 1 puffs Loratadine (Claritin) 10 mg PO DAILY [facility] Stop: 02/10/19 08:59 Last Admin: 01/14/19 08:23 Dose: 10 mg Miscellaneous (Order Awaiting Action) 1 ea N/A QS [facility] Stop: 02/10/19 00:00 Last Admin: 01/14/19 08:22 Dose: Not Given Miscellaneous (Order Awaiting Action) 1 ea N/A QS [facility] Stop: 02/11/19 15:59 Last Admin: 01/14/19 08:22 Dose: Not Given Multivitamins (Multivitamin Tab) 1 tab PO QAM [facility] Stop: 02/12/19 08:59 Last Admin: 01/14/19 08:24 Dose: 1 tab Mupirocin (Bactroban 2%) 1 appln EXT BID [facility]; Protocol Stop: 02/09/19 20:59 Last Admin: 01/14/19 08:22 Dose: 1 appln Polyethylene Glycol (Miralax Powder Packet) 17 gm PO DAILY PRN PRN Reason: Constipation Stop: 02/11/19 11:30 Tamsulosin HCl (Flomax) 0.4 mg PO DAILY [facility] Stop: 02/10/19 08:59 Last Admin: 01/14/19 08:23 Dose: 0.4 mg Vitamin D (Vitamin D3) 2,000 units PO DAILY [facility]; Protocol Stop: 02/10/19 08:59 Last Admin: 01/14/19 08:25 Dose: 2,000 units Warfarin Sodium (Coumadin) 5 mg PO DAILY@1600 RHETT Stop: 02/13/19 15:59 _ (1) Syncope Encounter type: Syncope type: unspecified Qualified Code(s): R55 - Syncope and collapse
[2019-01-14 14:59] LABS: Partial Thromboplastin Ratio 1.9
[2019-01-14 15:05] LABS: Partial Thromboplastin Time 48.8 Seconds (21.0-31.0)
[2019-01-14] MEDS ORDERED: WARFARIN SOD 5 MG TAB PO SCH (16:00)
[2019-01-14] MEDS: AMIODARONE 200 MG TAB PO SCH (16:20)
[2019-01-14] MEDS: ATORVASTATIN 40 MG TAB PO SCH (20:00)
[2019-01-15 06:28] LABS: INR 2.1 (0.9-1.1); Partial Thromboplastin Ratio 2.9; Prothrombin Time 20.1 Seconds (9.0-12.0)
[2019-01-15 06:33] LABS: Partial Thromboplastin Time 75.6 Seconds (21.0-31.0)
[2019-01-15 07:07] VITALS: BP 111/57; PULSE 88; TEMP 98.1; O2SAT 98
[2019-01-15] MEDS: MULTIVITAMIN TAB PO SCH (07:29)
[2019-01-15] MEDS: FINASTERIDE 5 MG TAB PO SCH (07:29)
[2019-01-15] MEDS: GLUCOSAMINE SULFATE 500 MG CAP PO SCH (07:29)
[2019-01-15] MEDS: DOCUSATE SODIUM 100 MG CAP PO SCH (07:29)
[2019-01-15] MEDS: CLOPIDOGREL BISULFATE 75 MG TAB PO SCH (07:30)
[2019-01-15] MEDS: CHOLECALCIFEROL 1,000 UNITS TAB PO SCH (07:30)
[2019-01-15] MEDS: LORATADINE 10 MG TAB PO SCH (07:30)
[2019-01-15] MEDS: AMIODARONE 200 MG TAB PO SCH (07:30)
[2019-01-15] MEDS: FLUTICASONE PROPIONATE NA SPR 16 GM BTL SCH (07:31)
[2019-01-15] MEDS: TAMSULOSIN HCL 0.4 MG CAP PO SCH (10:43)
[2019-01-15] MEDS: MUPIROCIN 2% OINT 22 GM TUBE EXT SCH (10:53)
--- NOTE | 2019-01-17 06:59 | Coding Query ---
CONGESTIVE HEART FAILURE To Promote full compliance with coding requirements relating to patient care, physician participation is requested in all cases of pre coder uncertainty. Please assist us with the following questions. A diagnosis of Congestive Heart Failure is documented in the patient's medical record. To accurately code this diagnosis and to compare patient severity, we ask that you specify the type of heart failure by placing an X within the parenthesis (x). 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 Please check the appropriate box: ( ) Present on Admission ( ) Not Present On Admission ( x) Clinically undetermined Thank you for your time,Defer to Cardiology MIKIE Moseley, [facility]
== END 2019-01-15 10:57 | disposition home health service (06) | DRG 194 ==
LOC: 2N 14:47 → ED 14:47 → SUATTDRO 18:10 → 2N 19:24 → 2E 01-12 11:26